=== PATIENT | male | born 1985 | race Caucasian/White ===

== ENCOUNTER 2018-07-05 11:42 | Outpatient (REF) | payer SELFPAY | END 2018-07-05 11:43 | LOC: OM 11:42 | PROVIDERS: PCP Physician Assistant Medical; Visit Provider Nurse Practitioner Family | DX: Z02.83 Encounter for blood-alcohol and blood-drug test (principal) ==

== ENCOUNTER 2018-07-05 11:43 | Outpatient (REF) | payer SELFPAY | END 2018-07-05 11:44 | LOC: OM 11:43 | PROVIDERS: PCP Physician Assistant Medical; Visit Provider Nurse Practitioner Family | DX: Z02.1 Encounter for pre-employment examination (principal) ==

== ENCOUNTER 2018-08-24 11:47 | Outpatient (REF) | payer MEDICAID, SELFPAY ==
[2018-08-24 20:59] LABS: Anion Gap 5.1 mmol/L (3-11); BUN 9 mg/dL (7-18); CO2 29.9 mmol/L (21.0-32.0); CREATININE 0.91 mg/dL (0.70-1.30); Calcium 8.5 mg/dL (8.5-10.1); Chloride 101 mmol/L (98-107); Cholesterol 180 mg/dL (50-200); Glucose 77 mg/dL (70-100); HDL Cholesterol 50 mg/dL (40-60); LDL CHOLESTEROL 113 mg/dL (<100); Potassium 5.6 mmol/L (3.5-5.1); Sodium 136 mmol/L (136-145); Triglyceride 129 mg/dL (30-150)
== END 2018-08-24 12:07 ==
LOC: NCHCN 11:47
PROVIDERS: PCP Physician Assistant Medical; Visit Provider Specialist/Technologist Athletic Trainer
DX: Z00.00 Encounter for general adult medical examination without abnormal findings (principal); Z13.228 Encounter for screening for other metabolic disorders; Z13.220 Encounter for screening for lipoid disorders
CPT/HCPCS: 80048; 80061; 83721

== ENCOUNTER 2019-05-31 07:20 | Emergency (ER) | payer MEDICAID, SELFPAY ==
[2019-05-31 07:29] VITALS: BP 153/101; PULSE 62; RESP 20; TEMP 36.8; O2SAT 100
--- NOTE | 2019-05-31 07:30 | W.ED.GENAD ---
Discharge Plan Disposition Patient Disposition: HOME Condition: Improving Discharge Details Chief Complaint: FlankPain Clinical Impression: Abdominal pain, left lateral Primary Care Provider: Yury Allen ED Provider: Emil Gilliam Home Meds and New Rx's Prescriptions: New hydromorphone 2 mg tablet 2 mg PO Q4H PRN (Reason: pain) Qty: 20 RF: 0 No Action No Known Home Meds RF: 0 Discharge Instructions Additional Instructions: I discussed your case with Dr. Bonner of [facility] urology. He stated that they would make a follow-up appointment with you in clinic. The clinic number is [phone]. Return if you develop a fever, grossly bloody urine, increasing pain, or any other acute concerns. May use Tylenol and/or ibuprofen as needed for pain. May use the provided hydromorphone as needed for severe pain. No alcohol, driving, working with this medication. Stand Alone Forms: Work Release Discharge Data Discharge Date/Time-TO BE ENTERED AT DEPARTURE: 05/31/19 12:00 Medical Decision Making <Donnie Richard DO - Last Filed: 05/31/19 20:47> This is a 34-year-old male with a past medical history of kidney stones who presents today for evaluation of left-sided flank pain that radiates to his groin that began at 3 AM. He has associated nausea, exam demonstrates reproducible left-sided pain, left CVA tenderness. Testicular exam is normal, no clinical evidence of torsion. Signs and symptoms are concerning for diverticulitis and urolithiasis. We will treat his pain, rehydrate, and a CT scan for further evaluation. The case was be signed out to my colleague Dr. Emil Gilliam for final management disposition pending labs and CT imaging. <Emil Gilliam MD - Last Filed: 05/31/19 11:55> Received signout from Dr. Richard. Please see his note regarding details of initial presentation, exam, plan of care. The patient's abdominal CT revealed left renal mass with acute hydronephrosis. He is a smoker and there was note of a small pulmonary nodule as well. Referred for CT of the chest which reveals multiple small bilateral pulmonary nodules. Labs reveal a white count of 9, hematocrit 44, platelets 231, sodium 140, potassium 4.1, nightly 9, creatinine 0.9, glucose 126, normal LFTs, urinalysis pH 6.5, specific gravity 1.01, negative for blood. Case discussed with on-call urology at [facility], Dr. Bonner. They will make arrangements to see the patient in oncologic urology clinic. He understands homecare as well as follow-up and return precautions. He will require narcotic analgesia for home which I have consented him for. He is stable to discharge at this time. ABDOMEN AND PELVIC CT: CT examination of the abdomen and pelvis was performed with a bolus infusion of 100 cc's of Omnipaque 350. Images obtained through the lung bases are unremarkable except for a 5 mm. in diameter, lingular intrapulmonary nodule. This is well circumscribed. No pleural effusion is seen. Liver and spleen appear normal. Pancreas appears intact. Gallbladder and bile ducts are unremarkable. No significant abdominal wall hernia is seen. There is diffuse edema of subcutaneous and intra-abdominal fat. There is a small quantity of free fluid in the pelvis. There is a 7.5 cm. in diameter, mildly enhancing, mildly heterogeneous left renal mass which appears to arise from the medial cortex, alternatively this could arise from the collecting system. The findings are highly suggestive of neoplastic disease. Alternative causes would include large thrombus but this is unlikely due to the suspected enhancement. There is moderate left hydronephrosis. Right kidney appears normal. No urinary tract calcification is seen. No ureteral calcification. Adrenals appear normal bilaterally. No gross retroperitoneal or mesenteric adenopathy. Abdominal aorta is of normal diameter and no major vascular abnormality is seen. No gross left renal vein invasion. Urinary bladder is mildly distended but otherwise unremarkable. Appendix is normal. No evidence of diverticulitis or bowel obstruction. CONCLUSION: 1. 7-8 cm. in diameter left renal mass, suspect renal cell carcinoma but other etiologies are possible. 2. 5 mm. in diameter lingular intrapulmonary nodule, possibility of metastatic disease not excluded, chest CT suggested for further evaluation. 3. Mild diffuse edema of subcutaneous and intra-abdominal fat and small free pelvic fluid. CHEST CT: CT examination of the chest was performed following the contrast enhanced abdominal and pelvic CT. Left renal mass noted on abdominal and pelvic CT is seen to obstruct the proximal left ureter with moderate resultant hydronephrosis and pooling of excreted contrast material in the collecting system. There are multiple pulmonary nodules seen bilaterally, the largest in the right middle lobe measuring 7 mm. in diameter with additional nodules in the right lower lobe measuring 3 mm. and 5 mm. in diameter respectively. 2 mm. nodule left upper lobe. 5 mm. nodule lingula. 3 and 4 mm. in diameter left lower lobe nodules. No focal consolidation is seen. No gross mediastinal or hilar adenopathy. No pleural effusion is seen. Tracheobronchial tree appears intact. CONCLUSION: Multiple bilateral intrapulmonary nodules, the largest measuring about 7 mm. in diameter in the right middle lobe. Given the finding of a large left renal mass suspicious for renal cell carcinoma, the findings are suspicious for intrathoracic metastatic disease. Lab Data Lab results reviewed: Yes I reviewed the patient's lab results. Laboratory Results - last 24 hr 05/31/19 05/31/19 07:40 07:40 WBC 9.29 RBC 5.14 Hgb 15.3 Hct 44.4 MCV 86.4 MCH 29.8 MCHC 34.5 RDW 13.1 Plt Count 231 MPV 9.6 Immature Gran % 0.4 Neutrophils % 75.9 Lymphocytes % 15.9 Monocytes % 7.2 Eosinophils % 0.4 Basophils % 0.2 Absolute Neutrophils 7.04 H Absolute Lymphocytes 1.48 Absolute Monocytes 0.67 Absolute Eosinophils 0.04 Absolute Basophils 0.02 Sodium 140 Potassium 4.1 Chloride 104 Carbon Dioxide 26.9 Anion Gap 9.1 BUN 20 H Creatinine 0.94 Estimated GFR/1.73 m2 >= 60.00 Glucose 126 H Calcium 8.9 Total Bilirubin 0.1 L AST 11 L ALT 20 Alkaline Phosphatase 76 Total Protein 6.9 Albumin 3.5 Lipase 94 HPI <Donnie Richard DO - Last Filed: 05/31/19 20:47> General Date/Time Provider Initiated Documentation: 05/31/19 07:22. HPI Narrative: This is a pleasant 34-year-old male with a past medical history of kidney stones, who presents today with left-sided abdominal pain and flank pain that started at 3 AM. It does radiate to his groin, however he states that the pain is atypical from his normal kidney stones. He describes it as an achy-like sensation with associated nausea and one episode of vomiting. He denies any right-sided abdominal pain, chest pain, chest heaviness, chest tightness shortness of breath. He denies any numbness tingling or weakness. He denies any hematuria increased urinary frequency or dysuria area. He has not taken for anything for the pain at this time. Patient has no previous abdominal surgeries. He denies any IV or illicit drug use or pertinent family history. No other modifying factors at this time. Related Data Home Medications Medication Instructions Recorded Confirmed Unknown [No Known Home Meds] 05/31/19 05/31/19 hydromorphone 2 mg PO Q4H PRN #20 tab 05/31/19 Previous Rx's Medication Instructions Recorded hydromorphone 2 mg PO Q4H PRN #20 tab 05/31/19 Allergies Allergy/AdvReac Type Severity Reaction Status Date / Time No Known Allergies Allergy Unverified 05/31/19 07:31 Review of Systems <Donnie Richard DO - Last Filed: 05/31/19 20:47> Review of Systems All systems reviewed & are unremarkable except as noted in HPI and below PFSH <Donnie Richard DO - Last Filed: 05/31/19 20:47> Medical History Kidney stones (Chronic) Social History Smoking/Tobacco Use Status: Current every day Drug use: Daily Substance use type: marijuana Do you feel safe at home: Yes Do you feel safe in your relationship?: Yes Exam <Donnie Richard DO - Last Filed: 05/31/19 20:47> Narrative Exam Narrative: 1.Const: Well-nourished, Well-developed, appearing stated age 2.Eyes: PERRL, no conjunctival injection, and symmetrical lids. 3.ENT: Atraumatic external nose and ears. Moist MM. Neck: Symmetric, trachea midline, No thyromegaly. 4.CVS: +S1/S2, No murmurs or gallops. Peripheral pulses 2+ and equal in all extremities. Brisk capillary refill in all extremities. 5.RESP: Unlabored respiratory effort. Clear to auscultation bilaterally. No wheezes rales or rhonchi 6.GI: Soft, Nondistended, No hepatosplenomegaly. No guarding or rebound. Mild left-sided abdominal tenderness, mild left CVA tenderness on palpation and percussion. No guarding or rebound. Negative obturator and psoas sign. No pain at McBurney's point, negative Guzman sign. Scrotal and genital exam demonstrates normal male genitalia with bilaterally descended testicles, normal cremasteric reflex bilaterally, no testicular tenderness. 7.MSK: Normocephalic/Atraumatic, Extremities w/o deformity or ttp No cyanosis or clubbing, Normal movement of all extremities 8.Skin: Warm, Dry. No rashes or lesions. 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 Sensation grossly intact, no focal neurologic deficits. 10.Psych: (AAO) x3. Appropriate mood and affect Sign Out <Donnie Richard DO - Last Filed: 05/31/19 20:47> Sign Out Data: Sign Out Comment: Left flank pain, radiates to groin, rule out diverticulitis and urolithiasis. Pending labs and imaging. Last updated by Donnie Richard DO at 05/31/19 07:34
--- NOTE | 2019-05-31 07:33 | ED.GENADUL_ITS ---
Discharge Plan Disposition Patient Disposition: HOME Condition: Improving Discharge Details Chief Complaint: FlankPain Clinical Impression: Abdominal pain, left lateral Primary Care Provider: Yury Allen ED Provider: Emil Gilliam Home Meds and New Rx's Prescriptions: New hydromorphone 2 mg tablet 2 mg PO Q4H PRN (Reason: pain) Qty: 20 RF: 0 No Action No Known Home Meds RF: 0 Discharge Instructions Additional Instructions: I discussed your case with Dr. Bonner of [facility] urology. He stated that they would make a follow-up appointment with you in clinic. The clinic number is [phone]. Return if you develop a fever, grossly bloody urine, increasing pain, or any other acute concerns. May use Tylenol and/or ibuprofen as needed for pain. May use the provided hydromorphone as needed for severe pain. No alcohol, driving, working with this medication. Stand Alone Forms: Work Release Discharge Data Discharge Date/Time-TO BE ENTERED AT DEPARTURE: 05/31/19 12:00 Medical Decision Making <Donnie Richard DO - Last Filed: 05/31/19 20:47> This is a 34-year-old male with a past medical history of kidney stones who presents today for evaluation of left-sided flank pain that radiates to his groin that began at 3 AM. He has associated nausea, exam demonstrates reproducible left-sided pain, left CVA tenderness. Testicular exam is normal, no clinical evidence of torsion. Signs and symptoms are concerning for diverticulitis and urolithiasis. We will treat his pain, rehydrate, and a CT scan for further evaluation. The case was be signed out to my colleague Dr. Emil Gilliam for final management disposition pending labs and CT imaging. <Emil Gilliam MD - Last Filed: 05/31/19 11:55> Received signout from Dr. Richard. Please see his note regarding details of initial presentation, exam, plan of care. The patient's abdominal CT revealed left renal mass with acute hydronephrosis. He is a smoker and there was note of a small pulmonary nodule as well. Referred for CT of the chest which reveals multiple small bilateral pulmonary nodules. Labs reveal a white count of 9, hematocrit 44, platelets 231, sodium 140, potassium 4.1, nightly 9, creatinine 0.9, glucose 126, normal LFTs, urinalysis pH 6.5, specific gravity 1.01, negative for blood. Case discussed with on-call urology at [facility] [place], Dr. Bonner. They will make arran gements to see the patient in oncologic urology clinic. He understands homecare as well as follow-up and return precautions. He will require narcotic analgesia for home which I have consented him for. He is stable to discharge at this time. ABDOMEN AND PELVIC CT: CT examination of the abdomen and pelvis was performed with a bolus infusion of 100 cc's of Omnipaque 350. Images obtained through the lung bases are unremarkable except for a 5 mm. in diameter, lingular intrapulmonary nodule. This is well circumscribed. No pleural effusion is seen. Liver and spleen appear normal. Pancreas appears intact. Gallbladder and bile ducts are unremarkable. No significant abdominal wall hernia is seen. There is diffuse edema of subcutaneous and intra-abdominal fat. There is a small quantity of free fluid in the pelvis. There is a 7.5 cm. in diameter, mildly enhancing, mildly heterogeneous left renal mass which appears to arise from the medial cortex, alternatively this could arise from the collecting system. The findings are highly suggestive of neoplastic disease. Alternative causes would include large thrombus but this is unlikely due to the suspected enhancement. There is moderate left hydronephrosis. Right kidney appears normal. No urinary tract calcification is seen. No ureteral calcification. Adrenals appear normal bilaterally. No gross retroperitoneal or mesenteric adenopathy. Abdominal aorta is of normal diameter and no major vascular abnormality is seen. No gross left renal vein invasion. Urinary bladder is mildly distended but otherwise unremarkable. Appendix is normal. No evidence of diverticulitis or bowel obstruction. CONCLUSION: 1. 7-8 cm. in diameter left renal mass, suspect renal cell carcinoma but other etiologies are possible. 2. 5 mm. in diameter lingular intrapulmonary nodule, possibility of metastatic disease not excluded, chest CT suggested for further evaluation. 3. Mild diffuse edema of subcutaneous and intra- abdominal fat and small free pelvic fluid. CHEST CT: CT examination of the chest was performed following the contrast enhanced abdominal and pelvic CT. Left renal mass noted on abdominal and pelvic CT is seen to obstruct the proximal left ureter with moderate resultant hydronephrosis and pooling of excreted contrast material in the collecting system. There are multiple pulmonary nodules seen bilaterally, the largest in the right middle lobe measuring 7 mm. in diameter with additional nodules in the right lower lobe measuring 3 mm. and 5 mm. in diameter respectively. 2 mm. nodule left upper lobe. 5 mm. nodule lingula. 3 and 4 mm. in diameter left lower lobe nodules. No focal consolidation is seen. No gross mediastinal or hilar adenopathy. No pleural effusion is seen. Tracheobronchial tree appears intact. CONCLUSION: Multiple bilateral intrapulmonary nodules, the largest measuring about 7 mm. in diameter in the right middle lobe. Given the finding of a large left renal mass suspicious for renal cell carcinoma, the findings are suspicious for intrathoracic metastatic disease. Lab Data Lab results reviewed: Yes I reviewed the patient's lab results. Laboratory Results - last 24 hr 05/31/19 05/31/19 07:40 07:40 WBC 9.29 RBC 5.14 Hgb 15.3 Hct 44.4 MCV 86.4 MCH 29.8 MCHC 34.5 RDW 13.1 Plt Count 231 MPV 9.6 Immature Gran % 0.4 Neutrophils % 75.9 Lymphocytes % 15.9 Monocytes % 7.2 Eosinophils % 0.4 Basophils % 0.2 Absolute Neutrophils 7.04 H Absolute Lymphocytes 1.48 Absolute Monocytes 0.67 Absolute Eosinophils 0.04 Absolute Basophils 0.02 Sodium 140 Potassium 4.1 Chloride 104 Carbon Dioxide 26.9 Anion Gap 9.1 BUN 20 H Creatinine 0.94 Estimated GFR/1.73 m2 >= 60.00 Glucose 126 H Calcium 8.9 Total Bilirubin 0.1 L AST 11 L ALT 20 Alkaline Phosphatase 76 Total Protein 6.9 Albumin 3.5 Lipase 94 HPI <Donnie Richard DO - Last Filed: 05/31/19 20:47> General Date/Time Provider Initiated Documentation: 05/31/19 07:22 . HPI Narrative: This is a pleasant 34-year-old male with a past medical history of kidney stones, who presents today with left-sided abdominal pain and flank pain that started at 3 AM. It does radiate to his groin, however he states that the pain is atypical from his normal kidney stones. He describes it as an achy-like sensation with associated nausea and one episode of vomiting. He denies any right-sided abdominal pain, chest pain, chest heaviness, chest tightness shortness of breath. He denies any numbness tingling or weakness. He denies any hematuria increased urinary frequency or dysuria area. He has not taken for anything for the pain at this time. Patient has no previous abdominal surgeries. He denies any IV or illicit drug use or pertinent family history. No other modifying factors at this time. Related Data Home Medications Medication Instructions Recorded Confirmed Unknown [No Known Home Meds] 05/31/19 05/31/19 hydromorphone 2 mg PO Q4H PRN #20 tab 05/31/19 Previous Rx's Medication Instructions Recorded hydromorphone 2 mg PO Q4H PRN #20 tab 05/31/19 Allergies Allergy/AdvReac Type Severity Reaction Status Date / Time No Known Allergies Allergy Unverified 05/31/19 07:31 Review of Systems <Donnie Richard DO - Last Filed: 05/31/19 20:47> Review of Systems All systems reviewed & are unremarkable except as noted in HPI and below PFSH <Donnie Richard DO - Last Filed: 05/31/19 20:47> Medical History Kidney stones (Chronic) Social History Smoking/Tobacco Use Status: Current every day Drug use: Daily Substance use type: marijuana Do you feel safe at home: Yes Do you feel safe in your relationship?: Yes Exam <Donnie Richard DO - Last Filed: 05/31/19 20:47> Narrative Exam Narrative: 1.Const: Well-nourished, Well-developed, appearing stated age 2.Eyes: PERRL, no conjunctival injection, and symmetrical lids. 3.ENT: Atraumatic external nose and ears. Moist MM. Neck: Symmetric, trachea midline, No thyromegaly. 4.CVS: +S1/S2, No murmurs or gallops. Peripheral pulses 2+ and equal in all extremities. Brisk capillary refill in all extremities. 5.RESP: Unlabored respiratory effort. Clear to auscultation bilaterally. No wheezes rales or rhonchi 6.GI: Soft, Nondistended, No hepatosplenomegaly. No guarding or rebound. Mild left-sided abdominal tenderness, mild left CVA tenderness on palpation and percussion. No guarding or rebound. Negative obturator and psoas sign. No pain at McBurney's point, negative Guzman sign. Scrotal and genital exam demonstrates normal male genitalia with bilaterally descended testicles, normal cremasteric reflex bilaterally, no testicular tenderness. 7.MSK: Normocephalic/Atraumatic, Extremities w/o deformity or ttp No cyanosis or clubbing, Normal movement of all extremities 8.Skin: Warm, Dry. No rashes or lesions. 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 Sensation grossly intact, no focal neurologic deficits. 10.Psych: (AAO) x3. Appropriate mood and affect Sign Out <Donnie Richard DO - Last Filed: 05/31/19 20:47> Sign Out Data: Sign Out Comment: Left flank pain, radiates to groin, rule out diverticulitis and urolithiasis. Pending labs and imaging. Last updated by Donnie Richard DO at 05/31/19 07:34
[2019-05-31 07:46] LABS: Abs Immature Grans 0.04 k/cumm (0.0-0.09); Absolute Basophil Count 0.02 k/cumm (0.0-0.2); Absolute Eosinophil Count 0.04 k/cumm (0.0-0.7); Absolute Lymphocyte Count 1.48 k/cumm (1.2-3.4); Absolute Monocyte Count 0.67 k/cumm (0.11-0.7); Absolute Neutrophil Count 7.04 k/cumm (1.2-6.7); Basophils % 0.2; Eosinophils % 0.4; HCT 44.4 % (40.0-50.0); HGB 15.3 g/dL (13.5-17.5); Immature Grans % 0.4; Lymphocytes % 15.9; Mean Corp. HGB Concentration 34.5 g/dL (32.0-36.0); Mean Corpuscular Hemoglobin 29.8 pg (27.0-33.0); Mean Corpuscular Volume 86.4 fL (80-95); Mean Platelet Volume 9.6 fL (8.0-11.0); Monocytes % 7.2; Neutrophils % 75.9; Platelet Count 231 x1000/uL (130-400); RBC 5.14 m/cumm (4.50-6.00); RBC Distribution Width 13.1 % (11.8-14.1); White Blood Cell Count 9.29 k/cumm (4.4-10.8)
[2019-05-31] MEDS: Ketorolac 30 MG/ML VIAL IVP (07:46)
[2019-05-31] MEDS: Normal Saline 1,000 ML 1000 ML IV (07:46)
[2019-05-31] MEDS: MORPHine 10 MG/ML VIAL 4 MG IVP (07:46)
[2019-05-31] MEDS: Omnipaque 350 MG/ML 100 ML BTL IJ (07:56)
[2019-05-31 08:08] LABS: ALT 20 U/L (12-78); AST 11 U/L (15-37); Albumin 3.5 g/dL (3.4-5.0); Alkaline Phosphatase 76 U/L (46-116); Anion Gap 9.1 mmol/L (3-11); BUN 20 mg/dL (7-18); Bilirubin, Total 0.1 mg/dL (0.2-1.0); CO2 26.9 mmol/L (21.0-32.0); CREATININE 0.94 mg/dL (0.70-1.30); Calcium 8.9 mg/dL (8.5-10.1); Chloride 104 mmol/L (98-107); Glucose 126 mg/dL (70-100); Lipase 94 U/L (73-393); Potassium 4.1 mmol/L (3.5-5.1); Sodium 140 mmol/L (136-145); Total Protein 6.9 g/dL (6.4-8.2)
[2019-05-31] MEDS: HYDROmorphone 2 MG/ML VIAL 1 MG IVP (08:12)
--- NOTE | 2019-05-31 08:39 | DI.CT_ITS ---
SYMPTOM/DIAGNOSIS: PULMONARY NODULE, LT RENAL MASS CHEST CT: CT examination of the chest was performed following the contrast enhanced abdominal and pelvic CT. Left renal mass noted on abdominal and pelvic CT is seen to obstruct the proximal left ureter with moderate resultant hydronephrosis and pooling of excreted contrast material in the collecting system. There are multiple pulmonary nodules seen bilaterally, the largest in the right middle lobe measuring 7 mm. in diameter with additional nodules in the right lower lobe measuring 3 mm. and 5 mm. in diameter respectively. 2 mm. nodule left upper lobe. 5 mm. nodule lingula. 3 and 4 mm. in diameter left lower lobe nodules. No focal consolidation is seen. No gross mediastinal or hilar adenopathy. No pleural effusion is seen. Tracheobronchial tree appears intact. CONCLUSION: Multiple bilateral intrapulmonary nodules, the largest measuring about 7 mm. in diameter in the right middle lobe. Given the finding of a large left renal mass suspicious for renal cell carcinoma, the findings are suspicious for intrathoracic metastatic disease.
[2019-05-31] MEDS: Ondansetron 4 MG/2 ML VIAL (08:40)
[2019-05-31 08:43] LABS: Bilirubin Negative (Negative); Blood Negative (Negative); Clarity Clear (Clear); Glucose Negative (Negative); Ketones Negative (Negative); Leukocyte Esterase Negative (Negative); Nitrite Negative (Negative); Urobilinogen 0.2 EU/dL (Up TO 0.2); pH 6.5 (5-8)
[2019-05-31] MEDS: HYDROmorphone 2 MG/ML VIAL ×2 (10:05→11:34)
[2019-05-31 11:56] VITALS: BP 153/101; PULSE 62; RESP 20; TEMP 36.8; O2SAT 100
== END 2019-05-31 12:00 | disposition home or self-care (01) ==
PROVIDERS: Student in an Organized Health Care Education/Training Program; Emergency Provider Emergency Medicine; PCP Physician Assistant Medical
DX: N28.89 Other specified disorders of kidney and ureter (principal); N13.39 Other hydronephrosis; R91.8 Other nonspecific abnormal finding of lung field; F17.210 Nicotine dependence, cigarettes, uncomplicated; Z87.442 Personal history of urinary calculi
CPT/HCPCS: 36415; 71250; 80053; 83690; 96361; 96374; 96375; 99285; 74177; 81003; 85025; 99284; J1885; J2270; J2405; J3490

== ENCOUNTER 2019-06-01 20:44 | Emergency (ER) | payer MEDICAID, SELFPAY ==
--- NOTE | 2019-06-01 20:47 | ED.GENADUL_ITS ---
Discharge Plan Discharge Details ED Provider: Emile Bonner Meds and New Rx's Prescriptions: No Action hydromorphone 2 mg tablet 2 mg PO Q4H PRN (Reason: pain) Qty: 20 RF: 0 HPI General Mode of arrival: EMS . Date/Time Provider Initiated Documentation: 06/01/19 20:45 . Limitations to Documentation: no limitations . Information obtained by: patient, EMS and old records reviewed . Related Data Home Medications Medication Instructions Recorded Confirmed hydromorphone 2 mg PO Q4H PRN #20 tab 05/31/19 Previous Rx's Medication Instructions Recorded hydromorphone 2 mg PO Q4H PRN #20 tab 05/31/19 Allergies Allergy/AdvReac Type Severity Reaction Status Date / Time No Known Allergies Allergy Unverified 05/31/19 07:31 General SHOBHA: 3 PFSH Medical History Kidney stones (Chronic) Social History Smoking/Tobacco Use Status: Current every day Drug use: Daily Substance use type: marijuana Do you feel safe at home: Yes Do you feel safe in your relationship?: Yes
--- NOTE | 2019-06-01 20:47 | NUR.NOTE ---
Nursing Note: approximately 1 hr ago PT was having a BM on the toilet then he woke up on the floor. PTs called EMS
[2019-06-01 20:59] VITALS: BP 157/88; PULSE 92; RESP 20; TEMP 39.7; O2SAT 95
--- NOTE | 2019-06-01 21:10 | W.ED.GENAD ---
Discharge Plan Disposition Patient Disposition: [facility] Condition: Stable Discharge Details Chief Complaint: Urinary Clinical Impression: Hydronephrosis of left kidney, Left renal mass, Fever Primary Care Provider: Yury Allen ED Provider: Emile Bonner Vale Meds and New Rx's Prescriptions: No Action hydromorphone [Dilaudid] 2 mg Tablet 2 mg PO RF: 0 Medical Decision Making Patient presenting with recurrent and worsening left flank pain now associated with fever and chills. He is febrile to 103.5. He is diaphoretic. He looks uncomfortable but not toxic. His abdomen is benign. His lungs have few scattered wheezes and rhonchi likely related to his smoking. His CT scan of his chest yesterday was negative for pneumonia or infiltrate. Suspect given the hydronephrosis and renal mass that he likely has urinary infection and is in need of decompression. 2 IVs are established and fluids started. Repeat laboratory studies ordered including blood cultures. Morphine and Cipro ordered. Patient's laboratory studies currently are okay. White count is 8.9. Renal function remains normal. Chemistries remain normal. Lactic acid is normal. Urine is negative for infection. Still concerned for obstruction with proximal infection requiring decompression urgently. He remains hemodynamically stable but uncomfortable even with morphine. Dilaudid is ordered. Call placed to [facility] to speak to urology for potential transfer. Case discussed with Dr. Stone, urology at [facility]. Patient accepted in transfer to the emergency department for urgent urological evaluation. He has remained hemodynamically stable here. I will transfer with fluids going in the care of medic in case he becomes septic with hypotension. Pain is better with Dilaudid. Medical Records Medical records reviewed: Yes I reviewed the patient's medical records. Lab Data Lab results reviewed: Yes I reviewed the patient's lab results. HPI General Mode of arrival: ambulatory. Date/Time Provider Initiated Documentation: 06/01/19 20:45. Limitations to Documentation: no limitations. Information obtained by: patient, RN notes reviewed and old records reviewed. HPI Narrative: Patient returns to ED with recurrent left back and flank pain. He also has developed fever and rigors this afternoon. He has had 3 episodes of rigors with associated sweats and shortness of breath. 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 He was also found to have multiple pulmonary nodules. His pain was under control and he was discharged home to follow-up with [facility] urology whom my colleague spoke to. Patient did not hear from [facility] today. He returned here as instructed this evening because of the high fever and rigors. Related Data Home Medications Medication Instructions Recorded Confirmed hydromorphone [Dilaudid] 2 mg PO 06/01/19 Allergies Allergy/AdvReac Type Severity Reaction Status Date / Time acetaminophen [From Tylenol] AdvReac Mild Nausea Unverified 06/01/19 22:32 General Stated Complaint: Dizzy/Sync SHOBHA: 3 Review of Systems Review of Systems 09/04 Review of Systems completed and is negative except as stated above in HPI (Systems reviewed: Const, Eyes, ENT, Resp, CV, GI, , MSK, Skin, Neuro) [facility] Medical History Kidney stones (Chronic) Social History Smoking/Tobacco Use Status: Current every day Drug use: Daily Substance use type: marijuana Do you feel safe at home: Yes Do you feel safe in your relationship?: Yes Exam Narrative Exam Narrative: Vitals: Afebrile. Not tachycardic. Hypertensive presumably due to pain. Const: WDWN male in NAD but does appear uncomfortable. HEENT: NC/AT. Normal facial exam. Eyes: Normal conjunctiva and sclera. Neck: Supple. Trachea midline. Lungs: Normal respiratory effort. Lungs with a few scattered wheeze/rhonchi. Cor: RRR without murmur/gallop. Good radial pulses. GI: Soft. NT/ND. No guarding or rebound. Back: Left CVAT. Neuro: A+O x 3. CN grossly in tact. Good strength and no focal deficit. Ext: No C/C/E. No deformity or tenderness. Skin: Warm, diaphoretic; no rash. Course Vital Signs Temperature 103.5 F H 06/01/19 20:59 Pulse 92 H 06/01/19 20:59 Respiratory Rate 20 06/01/19 20:59 Blood Pressure 157/88 H 06/01/19 20:59 Pulse Oximetry 95 06/01/19 20:59 Temperature 103.5 F H 06/01/19 20:59 Temperature Source Temporal Artery Scan 06/01/19 20:59 Pulse 92 H 06/01/19 20:59 Respiratory Rate 20 06/01/19 20:59 Respiratory Effort Non-Labored 06/01/19 20:59 Blood Pressure 157/88 H 06/01/19 20:59 Blood Pressure Position Supine 06/01/19 20:59 Pulse Oximetry 95 06/01/19 20:59 Oxygen Delivery Method Room Air 06/01/19 20:59 Oxygen Flow Rate 0 06/01/19 20:59 Pain Level 9 06/01/19 21:04
[2019-06-01] MEDS: CIPROFLOXACIN 400 MG/200 ML BAG 200 MG IVPB (22:07)
[2019-06-01] MEDS: Lactated Ringers 2,000 ML 1000 ML IV (22:07)
[2019-06-01 22:24] LABS: Lactate-non-spesis 1.2 mmol/l (0.6-1.4)
[2019-06-01 22:30] VITALS: BP 150/87; PULSE 88; RESP 20; TEMP 38.5; O2SAT 95
[2019-06-01 22:30] LABS: Abs Immature Grans 0.02 k/cumm (0.0-0.09); Absolute Basophil Count 0.01 k/cumm (0.0-0.2); Absolute Eosinophil Count 0.02 k/cumm (0.0-0.7); Absolute Lymphocyte Count 0.29 k/cumm (1.2-3.4); Absolute Monocyte Count 0.16 k/cumm (0.11-0.7); Basophils % 0.1; Eosinophils % 0.2; HGB 13.8 g/dL (13.5-17.5); Immature Grans % 0.2; Lymphocytes % 3.3; Mean Corp. HGB Concentration 34.5 g/dL (32.0-36.0); Mean Corpuscular Hemoglobin 29.5 pg (27.0-33.0); Mean Corpuscular Volume 85.5 fL (80-95); Mean Platelet Volume 10.2 fL (8.0-11.0); Monocytes % 1.8; Neutrophils % 94.4; Platelet Count 160 x1000/uL (130-400); RBC 4.68 m/cumm (4.50-6.00); RBC Distribution Width 13.1 % (11.8-14.1)
[2019-06-01 22:43] LABS: ALT 31 U/L (12-78); AST 38 U/L (15-37); Albumin 3.3 g/dL (3.4-5.0); Alkaline Phosphatase 82 U/L (46-116); Anion Gap 10.5 mmol/L (3-11); BUN 15 mg/dL (7-18); Bilirubin, Total 0.6 mg/dL (0.2-1.0); CO2 25.5 mmol/L (21.0-32.0); Calcium 8.6 mg/dL (8.5-10.1); Chloride 100 mmol/L (98-107); Glucose 89 mg/dL (70-100); Magnesium 1.8 mg/dL (1.8-2.4); Potassium 3.6 mmol/L (3.5-5.1); Sodium 136 mmol/L (136-145); Total Protein 6.7 g/dL (6.4-8.2)
[2019-06-01 22:53] LABS: Bilirubin Negative (Negative); Blood Trace-intact (Negative); Clarity Clear (Clear); Glucose Negative (Negative); Ketones 15 mg/dL (Negative); Leukocyte Esterase Negative (Negative); Nitrite Negative (Negative); Specific Gravity 1.015 (1.005-1.025); Urobilinogen 0.2 EU/dL (Up TO 0.2); pH 5.5 (5-8)
[2019-06-01] MEDS: Lactated Ringers 1,000 ML 150 ML IV (22:59)
[2019-06-01 23:03] LABS: Bacteria Negative HPF (Negative); C & S Indicated? No; Casts Negative LPF (Negative); Crystals Negative HPF (Negative); Epithelial Cells Negative HPF (Negative); Mucus Negative (Negative); Other Cells Negative (Negative); RBC 0-2 (0-2); WBC 0-2 HPF (0-5)
[2019-06-01 23:30] VITALS: BP 145/83; PULSE 86; RESP 20; TEMP 38.5; O2SAT 95
[2019-06-01] MEDS: HYDROmorphone 2 MG/ML VIAL 1 MG IVP (23:55)
[2019-06-02 00:18] VITALS: BP 138/80; PULSE 86; RESP 18; TEMP 38.3; O2SAT 94
[2019-06-02 03:56] VITALS: BP 138/80; PULSE 86; RESP 18; O2SAT 94
== END 2019-06-02 01:15 | disposition short-term general hospital (02) ==
PROVIDERS: Emergency Provider Emergency Medicine; PCP Physician Assistant Medical
DX: N13.39 Other hydronephrosis (principal); N39.8 Other specified disorders of urinary system
CPT/HCPCS: 36415; 80053; 87040; 96361; 96365; 96375; 99284; 81003; 81015; 83605; 83735; 85025; J0744

== ENCOUNTER 2020-10-02 13:21 | Outpatient (REF) | payer MEDICAID, SELFPAY ==
[2020-10-07 12:23] LABS: Patient Race White; SARS-CoV-2 RNA Undetected (Undetected); SARS-CoV-2 Specimen Source Nasal
== END 2020-10-02 13:41 ==
LOC: NCHCN 13:21
PROVIDERS: PCP Physician Assistant Medical; Visit Provider Physician Assistant Medical
DX: R53.81 Other malaise (principal)
CPT/HCPCS: U0003

== ENCOUNTER 2022-12-23 18:08 | Emergency (ER) | payer MEDICAID, SELFPAY ==
[2022-12-23 18:12] VITALS: PULSE 90; RESP 18; TEMP 36.7; O2SAT 95
[2022-12-23 18:16] VITALS: BP 188/83
--- NOTE | 2022-12-23 18:45 | DI.RAD_ITS ---
Exam(s) XR FOOT LT COMPLETE EXAM: XR FOOT LT COMPLETE CLINICAL HISTORY: Abscess, R/O Gas, Foreign body. TECHNIQUE: 2D digital imaging was performed. Three views. COMPARISON: No exams were available for comparison FINDINGS: BONES: No acute fracture is present. No bony destructive lesion is seen. JOINTS: No dislocation present. SOFT TISSUE: Diffuse edema. Focal swelling at the dorsum of the foot over the metatarsal region. No foreign body. No gas collection. IMPRESSION: Prominent soft tissue swelling over the metatarsal region. DATA REPOSITORY: RADIATION DOSE DELIVERED:
--- NOTE | 2022-12-23 18:46 | ED.GENADUL_ITS ---
Discharge Plan Disposition Patient Disposition: Home Condition: Serious Discharge Details Clinical Impression: Cellulitis and abscess of foot Primary Care Provider: Yury Allen ED Provider: Genoveva Macdonald Home Meds and New Rx's Prescriptions: New sulfamethoxazole-trimethoprim [Bactrim DS] 800-160 mg tablet 1 tab PO BID 10 Days Qty: 20 0RF Rx Instructions: Take 1 tablet by mouth with food twice daily for 10 days cephalexin 500 mg tablet 500 mg PO BID 10 Days Qty: 20 0RF Rx Instructions: Take 1 tablet by mouth with food twice daily for 10 days Discharge Instructions Instructions: Cellulitis (ED) Additional Instructions: Please have your foot rechecked in 2 to 3 days. You may return to the ER for recheck or be seen by your PCP if you can get in. Please take the antibiotics twice daily with yogurt or probiotic as prescribed. Return sooner if the redness spreads, worsening fever chills or feeling sicker at any time. No soaking. Change the dressing once a day. Wear the postop shoe as needed for comfort. You may keep your foot elevated when at rest. Keep clean and dry. Please take Tylenol or Ibuprofen with food every 4-6 hours as needed for pain and swelling. Please consider calling the power and recovery supervisor to discuss rehab options phone number is [phone] Stand Alone Forms: Work Release Referrals: Yury Allen PA [Primary Care Provider] - 2 days Medical Decision Making 37-year-old male presents to the ER with left foot cellulitis and abscess. He reports 3 days ago he injected heroin and since then has had increased swelling, erythema which is extending up past his ankle. He denies any fever or chills denies any knee pain. He is a smoker. He has been using for approximately 10 years. Work-up ordered including CBC, CMP lactate blood cultures x2 to rule out systemic disease. We will order a x-ray of left foot to rule out foreign body and/or gas. We will consider doing an I&D of abscess there is fluctuance noted to the dorsum of his left foot. CBC shows slight leukocytosis 12.54, with a left shift absolute neutrophils 10.22, lymphocytes 1.13 monocytes 1.09 lactate is within normal limits 1.2 sodium 134 chloride 97 alk phos is 124. Blood cultures x2 drawn. Patient is complaining of 10 out of 10 pain to his left foot. X-rays pending at this time. Clindamycin and Rocephin ordered Zofran and morphine IV. X-ray shows soft tissue swelling no subcutaneous emphysema. No foreign body. Please see procedure note. Area was cleansed with chlorhexidine and alcohol anesthetized with 1% lidocaine with epi, incision performed with an 11 blade small amount of purulent drainage expressed with mixed with blood. A second incision was placed just proximal to the first no significant fluid expressed, other than mixed purulent drainage and blood. Foot to be dressed with nonadherent dressing by staff nurse icu resource team and a postop shoe was ordered. I did recommend admission for IV antibiotics with patient which he declined at this time. I did express that he needs to have a recheck in 2 to 3 days he verbalizes understanding and is in agreement with the plan. I will send patient home with Bactrim and cephalexin. Strict return instructions given. Instructed to return if any worsening of the redness, fever chills or concerns. We will give patient information to the power and recovery supervisor. This text was generated using obiwonation system, please disregard any oddities of phrase or misspellings. Lab Data Lab results reviewed: Yes I reviewed the patient's lab results. Labs: 12/23/22 19:10 Blood Blood Culture - Pending 12/23/22 19:05 Blood Blood Culture - Pending Laboratory Tests Range/Units 12/23/22 12/23/22 12/23/22 18:47 18:47 18:47 WBC (4.4-10.8) 10^3/uL 12.54 H RBC (4.36-5.78) 10^6/uL 4.88 Hgb (13.5-17.5) g/dL 14.3 Hct (40.0-50.0) % 41.4 MCV (80-95) fL 85 MCH (27.0-33.0) pg 29.3 MCHC (32.0-36.0) % 34.5 RDW (11.8-14.1) % 12.1 Plt Count (130-400) 10^3/uL 230 MPV (8.0-11.0) fL 9.3 Immature Gran % 0.3 Neutrophils % 81.5 Lymphocytes % 9.0 Monocytes % 8.7 Eosinophils % 0.2 Basophils % 0.3 Nucleated RBC % (0.0-0.3) % 0.0 Absolute Neutrophils (1.2-6.7) 10^3/uL 10.22 H Absolute Lymphocytes (1.2-3.4) 10^3/uL 1.13 L Absolute Monocytes (0.1-0.8) 10^3/uL 1.09 H Absolute Eosinophils (0.0-0.7) 10^3/uL 0.03 Absolute Basophils (0.0-0.2) 10^3/uL 0.04 VBG Lactate (0.6-1.4) mmol/L 1.2 Sodium (136-145) mmol/L 134 L Potassium (3.5-5.1) mmol/L 3.9 Chloride (98-107) mmol/L 97 L Carbon Dioxide (21.0-32.0) mmol/L 29.5 Anion Gap (3-11) mmol/L 7.5 BUN (7-18) mg/dL 13 Creatinine (0.70-1.30) mg/dL 1.1 Est GFR (CKD-EPI 2020) (mL/min/1.73m2) 89.78 Glucose (74-106) mg/dL 101 Calcium (8.5-10.1) mg/dL 9.1 Magnesium (1.8-2.4) mg/dL 1.9 Total Bilirubin (0.2-1.0) mg/dL 0.5 AST (15-37) U/L 23 ALT (16-63) U/L 19 Alkaline Phosphatase (46-116) U/L 124 H Total Protein (6.4-8.2) g/dL 8.1 Albumin (3.4-5.0) g/dL 3.7 HPI General Mode of arrival: ambulatory . Date/Time Provider Initiated Documentation: 12/23/22 18:12 . Limitations to Documentation: no limitations . Information obtained by: patient . HPI Narrative: 37-year-old male presents to the ER with left foot cellulitis and abscess. He reports 3 days ago he injected heroin and since then has had increased swelling, erythema which is extending up past his ankle. He denies any fever or chills denies any knee pain. He is a smoker. He has been using for approximately 10 years. Related Data Home Medications Medication Instructions Recorded Confirmed cephalexin 500 mg tablet 500 mg PO BID Cellulitis 10 days 12/23/22 #20 tabs sulfamethoxazole 800 1 tab PO BID Cellulitis 10 days 12/23/22 mg-trimethoprim 160 mg tablet #20 tabs (Bactrim DS) Previous Rx's Medication Instructions Recorded cephalexin 500 mg tablet 500 mg PO BID Cellulitis 10 days 12/23/22 #20 tabs sulfamethoxazole 800 1 tab PO BID Cellulitis 10 days 12/23/22 mg-trimethoprim 160 mg tablet #20 tabs (Bactrim DS) Allergies Allergy/AdvReac Type Severity Reaction Status Date / Time acetaminophen [From Tylenol] AdvReac Mild Nausea Unverified 12/23/22 18:16 General Stated Complaint: Cellulitis SHOBHA: 3 Review of Systems All systems reviewed & are unremarkable except as noted in HPI and below Constitutional Constitutional: Denies chills and Denies fever(s) Cardiovascular Cardiovascular: Denies chest pain and Denies dyspnea Respiratory Respiratory: Denies hemoptysis and Denies dyspnea Musculoskeletal Musculoskeletal: Reports as per HPI, Reports arthralgias and Reports joint swelling Integumentary/Breasts Skin/Breast: Reports as per HPI, Reports furuncle, Reports erythema, Reports skin pain, Reports skin swelling and Reports sores PFSH All Active Problems (Updated 12/23/22 @ 21:27 by Genoveva Macdonald NP) Cellulitis and abscess of foot (Acute) Medical History Kidney stones Social History Smoking/Tobacco Use Status: Current every day Tobacco Type: cigarettes Smoking risk assessment performed?: Yes Drug use: Daily Substance use type: marijuana Details: former opiate user Do you feel safe at home: Yes Do you feel safe in your relationship?: Yes Exam Narrative Exam Narrative: Constitutional: Alert and oriented x3. Appears stated age. Normal body habitus. Head: Normocephalic, no trauma. Eyes: Pupils PERRL, Red reflex noted, EOM's intact. Eyelids symmetrical without lesions, discharge, or swelling. Chest: RRR, Normal S1, S2, distal pulses intact. Resp: Lungs clear to auscultation bilaterally, no wheezes, rales, or rhonchi. Abdomen: Soft, non-distended, Normoactive bowel sounds all 4 quads. Musculoskeletal: See diagram below 5/5 strength to all four extremities. Skin: Left foot erythemic, swollen, there is an area of fluctuance to the dorsum of his left foot with suspected abscess, distal sensation intact. Neurologic: Cranial nerves II-XII intact. Alert and oriented x 3. Motor: No deficits noted. Sensory: Intact bilaterally all 4 extremities. Reflexes: DTR's intact bilaterally.. Hematologic/Lymphatic: No ecchymosis, no lymphadenopathy. Extrem Left lower extremity: ankle and foot Ankle/foot/toe images: 1. Large area of fluctuance measuring approximately 2 and half centimeters by 2 and half centimeters with surrounding erythema and swelling redness extends up past malleolus the lateral ankle. Foot swelling and nonpitting edema noted extending past the ankle. 2. Erythema, Swelling Course Vital Signs Vital signs: Vital Signs Temperature 36.7 C 12/23/22 18:12 Pulse 90 12/23/22 18:12 Respiratory Rate 18 12/23/22 18:12 Pulse Oximetry 95 12/23/22 18:12 Temperature 36.7 C 12/23/22 18:12 Temperature Source Oral 12/23/22 18:12 Pulse 90 12/23/22 18:12 Respiratory Rate 18 12/23/22 18:12 Respiratory Effort Non-Labored 12/23/22 18:14 Blood Pressure 188/83 H 12/23/22 18:16 Pulse Oximetry 95 12/23/22 18:12 Oxygen Delivery Method Room Air 12/23/22 18:12 Oxygen Flow Rate 0 12/23/22 18:12 Lab/Test Results Lab/Test Results: 12/23/22 18:43 Blood Blood Culture - Pending 12/23/22 18:43 Blood Blood Culture - Pending Procedures Abscess I/D Site: Foot Side (if applicable): Left Sedation/analgesia: None (Received Morphine 4 mg Prior to procedure) Local Anesthetic: Lidocaine 1% and With Epi Amount of anesthesia used (mL): 3 Technique: Incised with #11 Blade Amount of fluid expressed (mL): 5 Irrigation: No Packing used?: None Complications: Pain and Bleeding
[2022-12-23 18:55] LABS: Abs Immature Grans 0.04 10^3/uL (0.0-0.06); Absolute Basophil Count 0.04 10^3/uL (0.0-0.2); Absolute Lymphocyte Count 1.13 10^3/uL (1.2-3.4); Absolute Monocyte Count 1.09 10^3/uL (0.1-0.8); Absolute Neutrophil Count 10.22 10^3/uL (1.2-6.7); Basophils % 0.3; Eosinophils % 0.2; HCT 41.4 % (40.0-50.0); HGB 14.3 g/dL (13.5-17.5); Immature Grans % 0.3; MCH 29.3 pg (27.0-33.0); MCHC 34.5 % (32.0-36.0); MCV 85 fL (80-95); MPV 9.3 fL (8.0-11.0); Monocytes % 8.7; Neutrophils % 81.5; Platelet Count 230 10^3/uL (130-400); RBC 4.88 10^6/uL (4.36-5.78); RDW 12.1 % (11.8-14.1); RDW-SD 37.3 fL; WBC 12.54 10^3/uL (4.4-10.8)
[2022-12-23 18:57] LABS: Lactate 1.2 mmol/L (0.6-1.4)
[2022-12-23 19:18] LABS: Absolute Eosinophil Count 0.03 10^3/uL (0.0-0.7)
[2022-12-23 19:21] LABS: ALT 19 U/L (16-63); AST 23 U/L (15-37); Albumin 3.7 g/dL (3.4-5.0); Alkaline Phosphatase 124 U/L (46-116); Anion Gap 7.5 mmol/L (3-11); BUN 13 mg/dL (7-18); Bilirubin, Total 0.5 mg/dL (0.2-1.0); CO2 29.5 mmol/L (21.0-32.0); CREATININE 1.1 mg/dL (0.70-1.30); Calcium 9.1 mg/dL (8.5-10.1); Chloride 97 mmol/L (98-107); Estimated GFR 89.78 (mL/min/1.73m2); Glucose 101 mg/dL (74-106); Magnesium 1.9 mg/dL (1.8-2.4); Potassium 3.9 mmol/L (3.5-5.1); Sodium 134 mmol/L (136-145); Total Protein 8.1 g/dL (6.4-8.2)
[2022-12-23] MEDS: Ondansetron 4 MG/2 ML VIAL IVP (19:46)
[2022-12-23] MEDS: cefTRIAXone 2 GM/50 ML BAG IVPB (19:46)
[2022-12-23] MEDS: MORPHine 4 MG/ML SYR IVP (19:46)
[2022-12-23] MEDS: CLINDAMYCIN 600 MG/50 ML BAG 100 MG IVPB (20:20)
[2022-12-23 20:29] VITALS: BP 180/106; PULSE 86; RESP 16; O2SAT 98
--- NOTE | 2022-12-23 20:53 | DI.VRAD_ITS ---
PROCEDURE INFORMATION: Exam: XR Left Foot Exam date and time: 12/23/2022 8:39 PM Age: 37 years old Clinical indication: Pain; Foot; Left; Patient HX: Abcess, R/O gas, fb TECHNIQUE: Imaging protocol: Radiologic exam of the Left foot. Views: 3 or more views. COMPARISON: No relevant prior studies available. FINDINGS: Bones/joints: No osseous destruction or production. No acute fracture or dislocation Soft tissues: Diffuse swelling over the dorsum of the foot IMPRESSION: Diffuse swelling as noted . No subcutaneous gas or radiopaque foreign body No acute fracture or dislocation. No radiographic evidence for osteomyelitis Dictated and Authenticated by: Silviano Grover MD. Ordering:AD Tomas MD
[2022-12-23] MEDS: Sulfameth/Trimeth DS TAB 1 TAB PO (21:26)
[2022-12-23] MEDS: Cephalexin 500 MG CAP PO (21:27)
[2022-12-23] MEDS: Cephalexin 500 MG CAP, 4 CAPS/BTL PO (21:27)
[2022-12-23] MEDS: Sulfameth/Trimeth DS, 2 TABS/BTL 1 TAB PO (21:28)
[2022-12-23 21:55] VITALS: BP 178/99
--- NOTE | 2022-12-23 22:00 | NUR.NOTE ---
Nursing Note: Xeroform dressing, Telfa pad and 4x4s applied to pt L ft and wrapped w/ kerlex.
== END 2022-12-23 21:49 | disposition home or self-care (01) ==
PROVIDERS: Emergency Provider Registered Nurse Emergency; PCP Physician Assistant Medical
DX: L03.116 Cellulitis of left lower limb (principal); L02.416 Cutaneous abscess of left lower limb; F11.10 Opioid abuse, uncomplicated
CPT/HCPCS: 10060; 36415; 80053; 87040; 96365; 96375; 99284; 73630; 83605; 83735; 85025; J2270; J2405

== ENCOUNTER 2022-12-27 12:21 | Emergency (ER) | payer MEDICAID, SELFPAY ==
[2022-12-27 12:38] VITALS: BP 152/95; PULSE 88; RESP 17; TEMP 36.2; O2SAT 98
--- NOTE | 2022-12-27 13:51 | ED.GENADUL_ITS ---
Discharge Plan Disposition Patient Disposition: Home Condition: Stable Discharge Details Clinical Impression: Cellulitis and abscess of foot Primary Care Provider: Yury Allen ED Provider: Nandini Craven Home Meds and New Rx's Prescriptions: New cephalexin 500 mg capsule 500 mg PO QID 10 Days Qty: 40 0RF Continued sulfamethoxazole-trimethoprim [Bactrim DS] 800-160 mg tablet 1 tab PO BID 10 Days Qty: 20 0RF Rx Instructions: Take 1 tablet by mouth with food twice daily for 10 days cephalexin 500 mg tablet 500 mg PO BID 10 Days Qty: 20 0RF Rx Instructions: Take 1 tablet by mouth with food twice daily for 10 days Discharge Instructions Instructions: Cellulitis (ED) Additional Instructions: Warm compresses, elevate your leg, follow-up with surgery at your scheduled appointment tomorrow, you need to increase your Keflex to 500 mg 4 times daily instead of twice daily and continue taking the Bactrim Apply warm compresses to both areas is much as possible I ordered an outpatient ultrasound although I suspect you are developing another abscess in the upper portion of your leg Please return immediately should you develop fever, temperature greater than 100.4, spreading redness, chills, or with any new or worsening complaints Referrals: Payal Cui DO [OSTEOPATHIC DOCTOR] - 1 day Discharge Data Discharge Date/Time-TO BE ENTERED AT DEPARTURE: 12/27/22 14:04 Medical Decision Making This 37-year-old male presents with report of abscess to left foot and area to left knee which is now painful in the presence of injection of IV drugs in affected extremity pt is afebrile and non-toxic foot abscess appears improved when compared to 01/20 pictures incision and drainage performed again today with 30cc of drainage noted blood cultures negative from prior assessment pt would likely benefit from debridement and iv abx at this point(recommended admission), prefers dc and follow-up will refer to surgery at this time for reevaluation recheck in 48 hours recommended concern for developing abscess on upper calf, low suspicion for dvt with superficial red lesion/us ordered for wednesday return precautions reviewed and pt expressed understanding will increased keflex to 500 mg qid Of note, patient fully alert, oriented, of decisional capacity Medical Records Medical records reviewed: Yes I reviewed the patient's medical records. Lab Data Lab results reviewed: Yes I reviewed the patient's lab results. HPI General Date/Time Provider Initiated Documentation: 12/27/22 12:23 . HPI Narrative: THis 37 yo male with hx of IVDA presents for pain and swelling to upper calf since yesterday. evaluated for foot abscess 3 days prior to todays assessment and taking keflex and bactrim. he states the foot lesion has improved. he did inject in the left foot prior to onset of abscess. denies fever or chills. taking antibiotics as prescribed per pt. denies chest pain or shortness of breath/hx of coagulopathy Related Data Home Medications Medication Instructions Recorded Confirmed cephalexin 500 mg tablet 500 mg PO BID Cellulitis 10 days 12/23/22 12/29/22 #20 tabs sulfamethoxazole 800 1 tab PO BID Cellulitis 10 days 12/23/22 12/29/22 mg-trimethoprim 160 mg tablet #20 tabs (Bactrim DS) cephalexin 500 mg capsule 500 mg PO QID 10 days #40 caps 12/27/22 12/29/22 Previous Rx's Medication Instructions Recorded cephalexin 500 mg tablet 500 mg PO BID Cellulitis 10 days 12/23/22 #20 tabs sulfamethoxazole 800 1 tab PO BID Cellulitis 10 days 12/23/22 mg-trimethoprim 160 mg tablet #20 tabs (Bactrim DS) cephalexin 500 mg capsule 500 mg PO QID 10 days #40 caps 12/27/22 Allergies Allergy/AdvReac Type Severity Reaction Status Date / Time acetaminophen [From Tylenol] AdvReac Mild Nausea Unverified 12/29/22 13:35 General Stated Complaint: Vascular SHOBHA: 3 PFSH All Active Problems (Updated 12/29/22 @ 22:48 by Payal Cui DO) History of marijuana use (Acute) Smoker unmotivated to quit (Acute) IV drug abuse (Acute) Cellulitis and abscess of foot (Acute) Medical History (Updated 12/29/22 @ 22:48 by Payal Cui DO) Alcohol abuse, in remission Kidney malignancy Kidney stones S/p nephrectomy Social History (Updated 12/29/22 @ 14:39 by Payal Cui DO) Smoking/Tobacco Use Status: Current every day Tobacco Type: cigarettes Smoking risk assessment performed?: Yes Alcohol Intake: former Drug use: Daily Substance use type: marijuana, heroin, opiates and IV drugs Details: former alcohol use disorder. stop drinking alcohol for a year per pt Current gender identity: male Do you feel safe at home: Yes Do you feel safe in your relationship?: Yes Exam Narrative Exam Narrative: Alert, oriented, cooperative 37-year-old gentleman that does not appear to be under the influence of any illicit substances at time of my assessment has left foot abscess approximately 3 inch x 3 inch region on left foot that is fluctuant with erythema surrounding, no obvious central necrosis, neurovascularly intact Separate area to the proximal leg, medial knee is approximately 2 inch x 2 inch region of erythema and induration, lymphangitis surrounding approximately 3 inch region without additional extension, no crepitus, ranging left knee does not elicit tenderness No murmur, rate rhythm regular: Cardiac, lungs clear to auscultation, no tachypnea Course Vital Signs Vital signs: Vital Signs Temperature 36.2 C L 12/27/22 12:38 Pulse 88 12/27/22 12:38 Respiratory Rate 17 12/27/22 12:38 Blood Pressure 152/95 H 12/27/22 12:38 Pulse Oximetry 98 12/27/22 12:38 Temperature 36.2 C L 12/27/22 12:38 Temperature Source Axillary 12/27/22 12:38 Pulse 88 12/27/22 12:38 Respiratory Rate 17 12/27/22 12:38 Respiratory Effort 12/27/22 12:43 Blood Pressure 152/95 H 12/27/22 12:38 Blood Pressure Position Sitting 12/27/22 12:38 Pulse Oximetry 98 12/27/22 12:38 Oxygen Delivery Method Room Air 12/27/22 12:38 Oxygen Flow Rate 0 12/27/22 12:38 Pain Level 8 12/27/22 12:38
--- NOTE | 2022-12-27 14:35 | NUR.NOTE ---
[facility]erral [facility] 12/28 per Nandini Craven for abscessNursing Note:
== END 2022-12-27 14:04 | disposition home or self-care (01) ==
PROVIDERS: Emergency Provider Physician Assistant; PCP Physician Assistant Medical
DX: L03.116 Cellulitis of left lower limb (principal); L02.612 Cutaneous abscess of left foot
CPT/HCPCS: 99283; 99284

== ENCOUNTER 2022-12-29 14:11 | Inpatient (IN) | payer MEDICAID, SELFPAY ==
--- NOTE | 2022-12-29 | DI.CT_ITS ---
Exam(s) CT LOWER EXTREMITY LT W EXAM: CT LOWER EXTREMITY LT W CLINICAL HISTORY: foot absces/septic emobli popiteal fossa. TECHNIQUE: Imaging Protocol: Axial computed tomography images with coronal and sagittal reformatted images were created and reviewed. CONTRAST MATERIAL: Intravenous: Omnipaque 350. Contrast Volume: 100 ML COMPARISON: CR,XR XR FOOT LT COMPLETE from 12/23/2022 FINDINGS: Bones: The osseous structures and articular surfaces are intact. Bony alignment is satisfactory. N o findings to suggest osteomyelitis. There is no evidence of joint space narrowing or cystic degenera tion seen. No lytic or sclerotic lesions are identified. Soft Tissues: There is edema seen in the soft tissues on the dorsum of the foot overlying the metatar sals. No focal in capsulated fluid collection is seen at this time to suggest an abscess. There is a fluid collection at the medial aspect of the left knee adjacent to the medial femoral condyle measuri ng 2.7 x 0.7 x 0.4 cm. This may represent a small abscess. Enhancement: No abnormal enhancement is identified. The arteries are patent no evidence of occlusion or significant stenosis. IMPRESSION: 1. Soft tissue swelling and edema seen on the dorsum of the foot. No definite focal fluid collection is seen to suggest an abscess. 2. Fluid collection adjacent to the medial femoral condyle. Small abscess cannot be excluded. RADIATION DOSE DELIVERED: 682.94mGy.cm Total DLP 682.94mGy.cm Total DLP DATA REPOSITORY: All CT scans at this facility are submitted to the National Radiology Data Registry (NRDR) Dose Index Registry (DIR) with the [employer] (A[employer]). RADIATION OPTIMIZATION: All CT scans at this facility use at least one of these dose optimization te chniques: automated exposure control; mA and/or kV adjustment per patient size (includes targeted exa ms where dose is matched to clinical indication); or iterative reconstruction.
--- NOTE | 2022-12-29 14:29 | W.PM.HP.N ---
Date of service: 12/29/22 Time of Service: 14:29 Assessment and Plan Assessment and plan (1) Cellulitis and abscess of foot: Status: Acute Assessment and plan: -Probable phlebitis versus septic emboli in the leg. Ultrasound is pending -Zosyn and Vanco to cover for MRSA. -Labs and imaging pending -Patient will require debridement in a.m. and then local wound care -Pain control and coverage to prevent withdrawal from narcotics -Patient is allergic to Tylenol and should not get NSAIDs because he only has 1 kidney. -Local wound care. Further recommendations based on findings at time of surgery. (2) Smoker unmotivated to quit: Status: Acute (3) IV drug abuse: Status: Acute Assessment and plan: - He did have plain films in the ER and there was no sign of foreign body in the foot (4) Kidney malignancy: Status: Chronic Assessment and plan: - He still smokes. I did tell him that smoking is directly related to kidney cancer. He has no desire to quit. -He does not follow-up with urology or oncology. (5) S/p nephrectomy: Status: Acute History of Present Illness Narrative: Patient is a 37-year-old male with a greater than 10-year history of IVDA. He did shoot up into his left foot and developed an abscess. He has been to the ER twice and refused admission for IV antibiotics. He came into my office today he is. He has been on Bactrim and cephalexin. Bactrim was started on 12/23/2022. This has been discontinued. He started the cephalexin on 12/27. Calf is also red tender and swollen. He also has a firm well-circumscribed 2 x 2 centimeter area that is exquisitely tender on the lateral posterior area of the knee on the left. This could be either a embolus or a thrombophlebitis of a varicose vein. He is running a temp of 99.9 in the office and BP was 173/100 and heart rate was 97. He smokes 1 to 2 packs a day. He is recovered alcoholic. He uses THC products daily. He tries to use heroin daily. He cannot give me an amount. 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 He did not require chemo. He does not follow-up for cancer care. Denies complications of anesthesia. He has no history of asthma/emphysema. He is not diabetic. He has no history of CT or stroke. Patient needed to run home to take care of his animals. He said he would be gone an hour and then come back to the hospital for direct admit. Review of Systems Constitutional Constitutional: Reports chills and Reports fever(s) Comments: pain foot/leg PFSH All Active Problems History of marijuana use (Acute) Smoker unmotivated to quit (Acute) Kidney malignancy (Chronic) S/p nephrectomy (Acute) IV drug abuse (Acute) Cellulitis and abscess of foot (Acute) Medical History Kidney stones Social History (Updated 12/29/22 @ 14:39 by Payal Cui DO) Smoking/Tobacco Use Status: Current every day Tobacco Type: cigarettes Smoking risk assessment performed?: Yes Drug use: Daily Substance use type: marijuana, heroin, opiates and IV drugs Details: former alcohol use disorder Current gender identity: male Do you feel safe at home: Yes Do you feel safe in your relationship?: Yes Meds Allergies and Home Medications Allergies Allergy/AdvReac Type Severity Reaction Status Date / Time acetaminophen [From Tylenol] AdvReac Mild Nausea Unverified 12/29/22 13:35 Home Medications Medication Instructions Recorded Confirmed Type cephalexin 500 mg tablet 500 mg PO BID Cellulitis 10 days 12/23/22 12/27/22 Rx #20 tabs sulfamethoxazole 800 1 tab PO BID Cellulitis 10 days 12/23/22 12/27/22 Rx mg-trimethoprim 160 mg tablet #20 tabs (Bactrim DS) cephalexin 500 mg capsule 500 mg PO QID 10 days #40 caps 12/27/22 Rx Exam Const General: cooperative and comfortable Nutritional Appearance: average body habitus Orientation: alert, awake and oriented x3 Other: PHYSICAL EXAM GENERAL APPEARANCE: Alert, healthy appearance, oriented, x 3,? in no acute distress HYDRATION: Well hydrated HEAD, EYES, EARS, NECK, THROAT: Head is normocephalic, pupils equal, round, reactive to light and accommodation, ocular movement intact, sclera clear and no jaundice. Roscea/facial telangectasia NECK: no lymphadenopathy.? Trachea midline.? Neck supple.? No JVD LUNGS: normal respiration/normal chest excursion. ?Clear to auscultation bilaterally. ?No R/R/W ?HEART: Regular rate and rhythm. no murmurs EXTREMITY: No edema or cyanosis- R foot. L foot: 6 x 6 cm of erythema/edema/induration. Central aspect with necrotic greenish tissue. He does have pulses. He also has erythema and swelling in the calf and a hard irregular shaped nodule medial and posterior to the calf. Its not a lymph node. It feels more like a thrombophlebitis. Neurologically appears intact. He is complaining of severe pain. There is no cyanosis ABDOMEN: soft and non-tender to palpation.? Normal bowel sounds.? Results Labs Result diagrams: 12/29/22 14:19 12/29/22 14:19 Time Spent Time spent with Patient: 55-74 minutes Time was spent: preparing to see the patient(eg.review tests), obtaining and/or reviewing separately otained hiistory, ordering medications,tests, procedures, referring, communicating with other health managed care provider, indepentently interpreting results, counseling the patient and care coordination
[2022-12-29 21:19] VITALS: BP 168/90; PULSE 80; RESP 16; TEMP 36.4; O2SAT 96
[2022-12-29 21:50] VITALS: RESP 16
[2022-12-29 22:11] LABS: Source Nasal/Nares
[2022-12-29 22:16] LABS: Abs Immature Grans 0.02 10^3/uL (0.0-0.06); Absolute Basophil Count 0.09 10^3/uL (0.0-0.2); Absolute Eosinophil Count 0.23 10^3/uL (0.0-0.7); Absolute Lymphocyte Count 2.44 10^3/uL (1.2-3.4); Absolute Monocyte Count 0.45 10^3/uL (0.1-0.8); Absolute Neutrophil Count 3.65 10^3/uL (1.2-6.7); Basophils % 1.3; Eosinophils % 3.3; HCT 47.9 % (40.0-50.0); HGB 15.6 g/dL (13.5-17.5); Immature Grans % 0.3; Lymphocytes % 35.5; MCH 28.1 pg (27.0-33.0); MCHC 32.6 % (32.0-36.0); MCV 86 fL (80-95); MPV 9.2 fL (8.0-11.0); Monocytes % 6.5; Neutrophils % 53.1; Platelet Count 380 10^3/uL (130-400); RBC 5.55 10^6/uL (4.36-5.78); RDW 12.3 % (11.8-14.1); RDW-SD 39.1 fL; WBC 6.88 10^3/uL (4.4-10.8)
[2022-12-29 22:40] LABS: ALT 25 U/L (16-63); AST 23 U/L (15-37); Albumin 4.7 g/dL (3.4-5.0); Alkaline Phosphatase 135 U/L (46-116); Anion Gap 8.3 mmol/L (3-11); BUN 19 mg/dL (7-18); Bilirubin, Total 0.2 mg/dL (0.2-1.0); C-Reactive Protein 1.64 mg/dL (0.0-0.3); CO2 28.7 mmol/L (21.0-32.0); CREATININE 1.3 mg/dL (0.70-1.30); Chloride 98 mmol/L (98-107); Estimated GFR 73.47 (mL/min/1.73m2); Glucose 72 mg/dL (74-106); Potassium 4.1 mmol/L (3.5-5.1); Sodium 135 mmol/L (136-145); Total Protein 9.9 g/dL (6.4-8.2)
[2022-12-29] MEDS: Nicotine 21 MG/24 HR PATCH TD (22:40)
[2022-12-29] MEDS: cloNIDine 0.1 MG PATCH TD (22:43)
[2022-12-29] MEDS: Enoxaparin 40 MG/0.4 ML SYR SC (22:46)
[2022-12-29 22:47] LABS: D-Dimer 4961 ng/mlFEU (<500)
[2022-12-29 22:50] VITALS: BP 146/83; PULSE 82; RESP 16; TEMP 36.9; O2SAT 99
[2022-12-29 22:50] LABS: COVID-19 PCR Negative (Negative)
[2022-12-29] MEDS: Omnipaque 350 MG/ML 100 ML BTL IJ (22:58)
[2022-12-29] MEDS: Normal Saline - Diluent 50 ML VIAL IJ (22:59)
[2022-12-29] MEDS: Normal Saline Flush 10 ML SYR IVP (23:00)
[2022-12-29 23:12] LABS: Procalcitonin 0.2 ng/mL
[2022-12-29 23:28] VITALS: PULSE 79
[2022-12-29] MEDS: Normal Saline 1,000 ML 125 ML IV (23:28)
[2022-12-29] MEDS: PIPERACILLIN/TAZO 3.375 GM in Normal Saline 50 ML IVPB (23:30)
[2022-12-29] MEDS: LORazepam 2 MG/ML VIAL 1 MG IVP (23:32)
[2022-12-29 23:50] LABS: Bilirubin Negative (Negative); Blood Negative (Negative); Clarity Clear (Clear); Glucose Negative (Negative); Ketones Negative (Negative); Leukocyte Esterase Negative (Negative); Nitrite Negative (Negative); Urobilinogen 0.2 EU/dL (Up TO 0.2)
[2022-12-30] VITALS (10 sets, daily range): BP systolic 117–153; BP diastolic 69–86; PULSE 63–89; RESP 15–20; TEMP 36–36.9; O2SAT 95–100
[2022-12-30] MEDS: MORPHine 2 MG/ML SYR 4 MG IVP ×3 (00:01→14:24)
[2022-12-30 00:12] LABS: *AMPHETAMINES SCREEN URINE Negative (Negative); *BARBITURATES SCREEN URINE Negative (Negative); *BENZODIAZEPINES SCREEN URINE Negative (Negative); Cannabinoids THC Positive (Negative); Cocaine Screen,Urine Positive (Negative); METHADONE URINE SCREEN Negative (Negative); OPIATES URINE SCREEN Negative (Negative)
[2022-12-30 00:17] LABS: Tricyclic Antidepressants Negative (Negative)
--- NOTE | 2022-12-30 00:42 | DI.VRAD_ITS ---
PROCEDURE INFORMATION: Exam: CT Left Lower Extremity With Contrast; Lower Leg Exam date and time: 12/29/2022 10:54 PM Age: 37 years old Clinical indication: Other: Foot absces/septic emobli popiteal fossa TECHNIQUE: Imaging protocol: CT of the Left lower extremity with intravenous contrast was performed. Exam focused on the lower leg. Radiation optimization: All CT scans at this facility use at least one of these dose optimization techniques: automated exposure control; mA and/or kV adjustment per patient size (includes targeted exams where dose is matched to clinical indication); or iterative reconstruction. Contrast material: OMNIPAQUE 350; Contrast volume: 100 ml; Contrast route: INTRAVENOUS (IV); COMPARISON: CR XR FOOT LT COMPLETE 12/23/2022 8:39 PM FINDINGS: Bones/joints: There is a fluid collection present within the medial aspect of the left knee at the distal femoral region with a thick wall measuring 27 x 6.5 x 38 mm best demonstrated on image 89 series 6 and image 292 series 5 a small abscess cannot be excluded. There is a small femoral tibial joint effusion and there is a small suprapatellar joint effusion present. No evidence of fracture dislocation. Soft tissues: There is abnormally increased venous and arterial enhancement, soft tissue fluid and edema present within the left calf and foot. Vasculature: No evidence of arterial or venous vascular occlusion although there does appear to be considerable hyperemia within the left lower extremity. Other findings: I do not identify a thick-walled fluid collection to suggest abscess within the left foot. IMPRESSION: 1. There is a fluid collection present within the medial aspect of the left knee at the distal femoral region with a thick wall measuring 27 x 6.5 x 38 mm best demonstrated on image 89 series 6 and image 292 series 5 a small abscess cannot be excluded. 2. There is abnormally increased venous and arterial enhancement, soft tissue fluid and edema present within the left calf and foot. 3. I do not identify a thick-walled fluid collection to suggest abscess within the left foot. 4. There is a small femoral tibial joint effusion and there is a small suprapatellar joint effusion present. 5. No evidence of arterial or venous vascular occlusion although there does appear to be considerable hyperemia within the left lower extremity. Dictated and Authenticated by: Soham Li MD. Ordering:MILLY Moe MD
[2022-12-30] MEDS: PIPERACILLIN/TAZO 3.375 GM in Normal Saline 50 ML IVPB ×3 (05:25→21:24)
[2022-12-30] MEDS: Normal Saline 1,000 ML 125 ML IV ×2 (07:50→19:26)
[2022-12-30] MEDS: Normal Saline Flush 10 ML SYR IVP ×3 (07:50→21:25)
--- NOTE | 2022-12-30 08:10 | PGE_ITS ---
Date of Service Date of service: 12/30/22 Time of Service: 08:10 Assessment and Plan Assessment and plan (1) Cellulitis and abscess of foot: Status: Acute Assessment and plan: Overall, the foot seems to be improving. He has no leukocytosis or fevers this morning. I think to see how the foot does over the next 24 hours. If it remains the same, we will plan for incisional debridement tomorrow. Subjective Subjective Interval history since last seen: Mark feels like his foot continues approved. It is less swollen with elevation. He has a little bit of pain this morning, but overall it is manageable. Exam Extrem Left lower extremity: foot (Swollen, with moderate erythema around the dorsum. seropurulent discharge) Details: normal capillary refill, toes with normal ROM, vascular exam Details: posterior tibial pulse present and motor-sensory exam Details: two point discrimination normal Objective Last Vital Signs Temp 96.8 F L 12/30/22 07:28 Pulse 72 12/30/22 07:28 Resp 19 12/30/22 07:28 BP 139/80 12/30/22 07:28 Pulse Ox 98 12/30/22 07:28 Laboratory Results - last 24 hr 12/29/22 12/29/22 12/29/22 21:30 21:45 21:45 WBC 6.88 RBC 5.55 Hgb 15.6 Hct 47.9 MCV 86 MCH 28.1 MCHC 32.6 RDW 12.3 Plt Count 380 MPV 9.2 Immature Gran % 0.3 Neutrophils % 53.1 Lymphocytes % 35.5 Monocytes % 6.5 Eosinophils % 3.3 Basophils % 1.3 Nucleated RBC % 0.0 Absolute Neutrophils 3.65 Absolute Lymphocytes 2.44 Absolute Monocytes 0.45 Absolute Eosinophils 0.23 Absolute Basophils 0.09 D-Dimer Sodium 135 L Potassium 4.1 Chloride 98 Carbon Dioxide 28.7 Anion Gap 8.3 BUN 19 H Creatinine 1.3 Est GFR (CKD-EPI 2020) 73.47 Glucose 72 L Calcium 10.0 Total Bilirubin 0.2 AST 23 ALT 25 Alkaline Phosphatase 135 H C-Reactive Protein 1.64 H Total Protein 9.9 H Albumin 4.7 Procalcitonin Urine Color Urine Clarity Urine pH Ur Specific [place] Urine Protein Urine Ketones Urine Blood Urine Nitrite Urine Bilirubin Urine Urobilinogen Ur Leukocyte Esterase Urine Glucose Urine Opiates Screen Urine Methadone Screen Ur Barbiturates Screen Ur Tricyclics Screen Ur Amphetamines Screen U Benzodiazepines Scrn Urine Cocaine Screen Ur THC Screen COVID-19 Source Nasal/Nares SARS-CoV-2 (PCR) Negative 12/29/22 12/29/22 12/29/22 21:45 21:45 23:35 WBC RBC Hgb Hct MCV MCH MCHC RDW Plt Count MPV Immature Gran % Neutrophils % Lymphocytes % Monocytes % Eosinophils % Basophils % Nucleated RBC % Absolute Neutrophils Absolute Lymphocytes Absolute Monocytes Absolute Eosinophils Absolute Basophils D-Dimer 4961 H Sodium Potassium Chloride Carbon Dioxide Anion Gap BUN Creatinine Est GFR (CKD-EPI 2020) Glucose Calcium Total Bilirubin AST ALT Alkaline Phosphatase C-Reactive Protein Total Protein Albumin Procalcitonin 0.2 Urine Color Yellow Urine Clarity Clear Urine pH 7.0 Ur Specific [place] 1.020 Urine Protein Negative Urine Ketones Negative Urine Blood Negative Urine Nitrite Negative Urine Bilirubin Negative Urine Urobilinogen 0.2 Ur Leukocyte Esterase Negative Urine Glucose Negative Urine Opiates Screen Urine Methadone Screen Ur Barbiturates Screen Ur Tricyclics Screen Ur Amphetamines Screen U Benzodiazepines Scrn Urine Cocaine Screen Ur THC Screen COVID-19 Source SARS-CoV-2 (PCR) 12/29/22 23:35 WBC RBC Hgb Hct MCV MCH MCHC RDW Plt Count MPV Immature Gran % Neutrophils % Lymphocytes % Monocytes % Eosinophils % Basophils % Nucleated RBC % Absolute Neutrophils Absolute Lymphocytes Absolute Monocytes Absolute Eosinophils Absolute Basophils D-Dimer Sodium Potassium Chloride Carbon Dioxide Anion Gap BUN Creatinine Est GFR (CKD-EPI 2020) Glucose Calcium Total Bilirubin AST ALT Alkaline Phosphatase C-Reactive Protein Total Protein Albumin Procalcitonin Urine Color Urine Clarity Urine pH Ur Specific [place] Urine Protein Urine Ketones Urine Blood Urine Nitrite Urine Bilirubin Urine Urobilinogen Ur Leukocyte Esterase Urine Glucose Urine Opiates Screen Negative Urine Methadone Screen Negative Ur Barbiturates Screen Negative Ur Tricyclics Screen Negative Ur Amphetamines Screen Negative U Benzodiazepines Scrn Negative Urine Cocaine Screen Positive A Ur THC Screen Positive A COVID-19 Source SARS-CoV-2 (PCR)
[2022-12-30] MEDS: VANCOMYCIN/WATER (PEG) 2 GM/400 ML BAG IVPB (09:08)
--- NOTE | 2022-12-30 12:19 | PDOC.CMIN ---
- If Service Date Differs Date of service: 12/30/22 Time of Service: 12:19 Care Management Initial Assess REASON FOR HOSPITALIZATION:: Cellulitis and abscess, SIRS, IVDA-opiode PAST MEDICAL HISTORY/PAST SURGICAL HISTORY:: All Active Problems. History of marijuana use (Acute). Smoker unmotivated to quit (Acute). Kidney malignancy (Chronic). S/p nephrectomy (Acute). IV drug abuse (Acute). Cellulitis and abscess of foot (Acute). Medical History. Kidney stones PREVIOUS FUNCTIONAL STATUS/SOCIAL/FAMILY SUPPORTS:: Mark lives in [place], alone. His mother, Kenisha, lives nearby and is supportive. 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 He is independent at baseline. CURRENT FUNCTIONAL STATUS:: Mark was lying in bed when CM met with him. He stated that he saw the MD earlier today, and was not sure what his plan was, but that he may need to have his wound debrided. Per report, he will likely have his wound debrided tomorrow, if indicated after his assessment. CM will continue to follow. ADVANCE DIRECTIVES:: Not on file. Has patient been provided with info about the portal/API?: Yes Did the patient sign up for the portal?: No CODE STATUS:: Full Code INSURANCE COVERAGE / FINANCIAL ISSUES:: [employer] CURRENT HOME/COMMUNITY SERVICES/EQUIPMENT:: No known services or equipment. PRIMARY CARE PHYSICIAN:: Yury Allen POTENTIAL DISCHARGE NEEDS:: Follow up appointments. PATIENT/FAMILY EDUCATION NEEDS:: Review discharge instructions and limitations, discussion of self care needs including ask me three. ANTICIPATED BARRIERS TO DISCHARGE:: None identified at this time. TRANSPORTATION:: Via private vehicle. PLAN:: Anticipate Mark will return home when medically cleared. He will be driven home via private vehicle. He will follow up with his PCP and discharge plan of care. CM will continue to follow.
--- NOTE | 2022-12-30 15:59 | PHA.REVIEW2 ---
Pharmacy Admission Review - Admission Clinical Review (Last Updated 12/29/22 @ 22:48 by Payal Cui DO) Smoker unmotivated to quit (Acute) IV drug abuse (Acute) Cellulitis and abscess of foot (Acute) acetaminophen [From Tylenol] Adverse Reaction (Mild, Unverified 12/29/22 13:35) Nausea Resuscitation Status Full Code Height 6 ft Weight 90.9 kg - Renal Dosing Renal Dosing: BUN 19 mg/dL (7-18) H 12/29/22 21:45 Creatinine 1.3 mg/dL (0.70-1.30) 12/29/22 21:45 Medications needing adjustments: Reviewed (eCrCl 100 ml/min) - Anticoagulation Anticoagulation: Hgb 15.6 g/dL (13.5-17.5) 12/29/22 21:45 Hct 47.9 % (40.0-50.0) 12/29/22 21:45 Plt Count 380 10^3/uL (130-400) 12/29/22 21:45 Creatinine 1.3 mg/dL (0.70-1.30) 12/29/22 21:45 DVT Prophylaxis: Reviewed Medications: Enoxaparin - Opiate Usage Evaluate Pain Scale/Pains Meds: Reviewed (morphine 4mg q1h prn; recent IVDA with heroin, most recent clinical opiate withdrawal score was 0) Scheduled Bowel Reg ordered if on Opiates?: No (will notify MD) - Relevant Labs Sodium 135 mmol/L (136-145) L 12/29/22 21:45 Potassium 4.1 mmol/L (3.5-5.1) 12/29/22 21:45 Chloride 98 mmol/L (98-107) 12/29/22 21:45 C-Reactive Protein 1.64 mg/dL (0.0-0.3) H 12/29/22 21:45 Electrolytes, C-Reactive P, ESR: N/A - DM Control DM Control: Glucose 72 mg/dL (74-106) L 12/29/22 21:45 DM Control: N/A - Cardiac Review BP, HR, EF%: Reviewed - Qtc Review QTc: N/A - IV to PO Switch IV Medications: Reviewed - Home Meds Home Med List reviewed: Reviewed Relevent Home Meds Not ordered & why?: only filled short course of PO abx recently, nothing chronic - Current meds Current Medication Order Review: Reviewed (Zosyn 3.375 q8h extended infusion + Vanco 1250 q8h, trough to be drawn tomorrow @ 1500)
[2022-12-30] MEDS: VANCOMYCIN/WATER (PEG) 1.25 GM/250 ML BAG IVPB ×2 (17:08→23:29)
[2022-12-30] MEDS: Enoxaparin 40 MG/0.4 ML SYR SC (21:23)
[2022-12-31] VITALS (7 sets, daily range): BP systolic 120–139; BP diastolic 62–79; PULSE 51–83; RESP 17–18; TEMP 36.2–36.5; O2SAT 96–98
[2022-12-31] MEDS: Normal Saline 1,000 ML 125 ML IV (03:36)
[2022-12-31] MEDS: PIPERACILLIN/TAZO 3.375 GM in Normal Saline 50 ML IVPB (06:15)
[2022-12-31 07:00] LABS: HCT 40.8 % (40.0-50.0); HGB 13.1 g/dL (13.5-17.5); MCH 28.5 pg (27.0-33.0); MCHC 32.1 % (32.0-36.0); MCV 89 fL (80-95); Platelet Count 308 10^3/uL (130-400); RBC 4.59 10^6/uL (4.36-5.78); RDW 12.8 % (11.8-14.1); WBC 5.22 10^3/uL (4.4-10.8)
--- NOTE | 2022-12-31 07:32 | W.PM.PROGNOT ---
Date of Service Date of service: 12/31/22 Time of Service: 07:32 Assessment and Plan Assessment and plan (1) Cellulitis and abscess of foot: Status: Acute Assessment and plan: Wound on dorsum of the left foot, appears to be improving. Erythema continues to be present, however more localized. No fluctulance or focal fluid collection noted on exam or on CT scan. Pain is well controlled Dressing changed with 4x4 dressing and URSZULA wrap Continue IV antibiotics, will need to transition to PO antibiotics Subjective Subjective Interval history since last seen: Patient is resting comfortably in bed. He states that his Left foot is feeling much better and he is eager to go home. Exam Const General: cooperative, healthy appearing and comfortable Orientation: alert and oriented x3 Resp Effort & Inspection: normal respiratory effort, no audible wheezes and no cough Extrem Other: Left foot- Dorsum of the foot, moderate swelling and erythema. No area of fluctulance. Minimal sanguineous drainage. Objective Last Vital Signs Temp 36.5 C 12/31/22 03:40 Pulse 51 L 12/31/22 03:40 Resp 18 12/31/22 03:40 BP 120/62 12/31/22 03:40 Pulse Ox 96 12/31/22 03:40 Laboratory Results - last 24 hr 12/31/22 06:35 WBC 5.22 RBC 4.59 Hgb 13.1 L D Hct 40.8 MCV 89 MCH 28.5 MCHC 32.1 RDW 12.8 Plt Count 308 MPV 9.0 Time Spent with Patient Time Spent with Patient: <25 minutes Time was spent: preparing to see the patient(eg.review tests)
[2022-12-31] MEDS: MORPHine 2 MG/ML SYR 4 MG IVP (08:35)
[2022-12-31] MEDS: VANCOMYCIN/WATER (PEG) 1.25 GM/250 ML BAG IVPB (08:36)
--- NOTE | 2022-12-31 12:07 | DSE_ITS ---
Date of service: 12/31/22 Time of Service: 12:07 DS: Diagnosis Discharge Diagnosis (1) Cellulitis and abscess of foot: Status: Acute Discharge Plan Disposition Patient Disposition: Home Condition: Improving Discharge Details Reason For Visit: Cellulitis and Abscess/SIRS/IVDA-Opioids Admit Date/Time: 12/29/22 14:11 Admit Provider: Payal Cui Attending Provider: Payal Cui Primary Care Provider: Yury Allen Hospital Course Hospital Course: Mark is a 37-year-old male with a soft tissue infection over the dorsum of his left foot. Attempts were made to treat this with antibiotics as an outpatient, but his swelling and erythema worsened. He was brought into the hospital with a plan for operative debridement. Broad-spectrum antibiotics were initiated, within 24 hours, he had decreasing erythema and swelling of the left foot. The wound was managed with topical dressing care, and he remained afebrile with a normal white blood cell count. Home Meds and New Rx's Prescriptions: Continued cephalexin 500 mg tablet 500 mg PO BID 10 Days Qty: 20 0RF Rx Instructions: Take 1 tablet by mouth with food twice daily for 10 days Discharge Instructions Additional Instructions: Resume your cephalexin 500 mg, taking 1 tablet in the morning, 1 tablet in the evening Resume the Bactrim (trimethoprim sulfa) taking 1 tablet in the morning, and 1 tablet in the evening Keep your foot elevated whenever you are sitting or lying down. Soak your left foot and 1 gallon of warm water mixed with half a cup of baking soda or Epsom salts once in the morning, and once in the evening. After each soak, wash the foot with warm soapy water and pat dry. Dress your wound with loosely fluffed gauze, and an Myke wrap starting at your toes wrapping up past your ankle. Stand Alone Forms: Nursing Discharge Form Referrals: Rex Joseph MD [ [facility] STAFF PHYSICIAN] - (01/04 at 1:15 PM) Activity:: Activity as Tolerated Equipment/Supplies:: Gauze and clean Myke wrap Diet:: As Tolerated DS: Summary Time Spent with Patient providing and/or coordinating discharge services: Greater than 30 minutes Status at Discharge Functional status at discharge: independent ambulation Overall status at discharge: patient is progressing back to baseline Mental Status: mental status grossly normal Speech and Movement: speech and movement normal Mood: congruent mood Affect: normal affect Exam Skin Other: The erythema has resolved, there are small foci of patchy necrosis over the dorsum of the foot. It is far less tender. The foot is nonswollen. Psych Mental Status: mental status grossly normal Speech and Movement: speech and movement normal Mood: congruent mood Affect: normal affect DS: Data Vitals/I&O Vitals and I&O: Vital Signs Temperature 97.2 F L 12/31/22 11:04 Temperature Source Tympanic 12/31/22 11:04 Pulse 79 12/31/22 11:04 Pulse Rhythm Regular 12/31/22 07:40 Respiratory Rate 17 12/31/22 11:04 Respiratory Effort Normal, Non-Labored 12/31/22 07:40 Respiratory Depth Normal 12/31/22 07:40 Respiratory Pattern Normal 12/31/22 07:40 Blood Pressure 136/66 12/31/22 11:04 Pulse Oximetry 97 12/31/22 11:04 Oxygen Delivery Method Room Air 12/31/22 11:04 Oxygen Flow Rate 0 12/31/22 11:04 Pain Level 8 12/31/22 11:04 Intake & Output 12/30/22 12/31/22 12/31/22 23:59 11:59 23:59 Intake Total 1700 / 2800 19090 Balance 1700 / 2800 1909 Intake: IV 1300 / 2400 1550 / 1550 Oral 400 / 400 360 / 360 Other: Urine Color Yellow Urine Appearance Clear Comment pt stated he voided x1 patient voids independently Voiding Methods Toilet Toilet Data Completed and Pending Labs on day of discharge: Labs from last 24 hours 12/31/22 12/31/22 12/31/22 15:00 15:00 06:35 WBC 5.22 RBC 4.59 Hgb 13.1 L D Hct 40.8 MCV 89 MCH 28.5 MCHC 32.1 RDW 12.8 Plt Count 308 MPV 9.0 Creatinine Pending Est GFR (CKD-EPI 2020) Pending Vancomycin Trough Pending Preliminary micro results at discharge 12/29/22 21:30 Wound Culture - Preliminary Foot - Left 12/29/22 21:45 Blood Culture - Preliminary Blood NO GROWTH 24 HOURS 12/29/22 22:00 Blood Culture - Preliminary Blood NO GROWTH 24 HOURS PFSH All Active Problems (Updated 12/29/22 @ 22:48 by Payal Cui DO) History of marijuana use (Acute) Smoker unmotivated to quit (Acute) IV drug abuse (Acute) Cellulitis and abscess of foot (Acute) Medical History (Updated 12/29/22 @ 22:48 by Payal Cui DO) Alcohol abuse, in remission Kidney malignancy Kidney stones S/p nephrectomy Social History (Updated 12/29/22 @ 14:39 by Payal Cui DO) Smoking/Tobacco Use Status: Current every day Tobacco Type: cigarettes Smoking risk assessment performed?: Yes Alcohol Intake: former Drug use: Daily Substance use type: marijuana, heroin, opiates and IV drugs Details: former alcohol use disorder. stop drinking alcohol for a year per pt Current gender identity: male Do you feel safe at home: Yes Do you feel safe in your relationship?: Yes Time Spent with Patient Time Spent with Patient: 45-69 minutes Time was spent: ordering medications,tests, procedures and counseling the patient
--- NOTE | 2022-12-31 12:43 | W.PM.DS.N ---
Date of service: 12/31/22 Time of Service: 12:45 DS: Diagnosis Discharge Diagnosis (1) Cellulitis and abscess of foot: Status: Acute Discharge Plan Disposition Patient Disposition: Home Condition: Improving Discharge Details Reason For Visit: Cellulitis and Abscess/SIRS/IVDA-Opioids Admit Date/Time: 12/29/22 14:11 Admit Provider: Payal Cui Attending Provider: Payal Cui Primary Care Provider: Yury Allen Hospital Course Hospital Course: Mark is a 37-year-old male with a soft tissue infection over the dorsum of his left foot. Attempts were made to treat this with antibiotics as an outpatient, but his swelling and erythema worsened. He was brought into the hospital with a plan for operative debridement. Broad-spectrum antibiotics were initiated, within 24 hours, he had decreasing erythema and swelling of the left foot. The wound was managed with topical dressing care, and he remained afebrile with a normal white blood cell count. Home Meds and New Rx's Prescriptions: New cephalexin 500 mg tablet 500 mg PO BID Qty: 16 0RF sulfamethoxazole-trimethoprim [Bactrim DS] 800-160 mg tablet 1 tab PO BID Qty: 16 0RF Discontinued cephalexin 500 mg tablet 500 mg PO BID 10 Days Qty: 20 0RF Rx Instructions: Take 1 tablet by mouth with food twice daily for 10 days Discharge Instructions Instructions: Cellulitis (DC) Additional Instructions: Resume your cephalexin 500 mg, taking 1 tablet in the morning, 1 tablet in the evening Resume the Bactrim (trimethoprim sulfa) taking 1 tablet in the morning, and 1 tablet in the evening Keep your foot elevated whenever you are sitting or lying down. Soak your left foot and 1 gallon of warm water mixed with half a cup of baking soda or Epsom salts once in the morning, and once in the evening. After each soak, wash the foot with warm soapy water and pat dry. Dress your wound with loosely fluffed gauze, and an Myke wrap starting at your toes wrapping up past your ankle. Stand Alone Forms: Nursing Discharge Form Referrals: Rex Joseph MD [ [facility] STAFF PHYSICIAN] - 01/04/23 1:15 pm (01/04 at 1:15 PM) Activity:: Activity as Tolerated Equipment/Supplies:: Gauze and clean Myke wrap Diet:: As Tolerated Discharge Orders Discharge Orders: Discharge Order (Routine); Ordered 12/31/22 Ordered By: Rex Joseph DS: Summary Time Spent with Patient providing and/or coordinating discharge services: Greater than 30 minutes Status at Discharge Functional status at discharge: independent ambulation Overall status at discharge: patient is progressing back to baseline Mental Status: mental status grossly normal Speech and Movement: speech and movement normal Mood: congruent mood Affect: normal affect Exam Psych Mental Status: mental status grossly normal Speech and Movement: speech and movement normal Mood: congruent mood Affect: normal affect DS: Data Vitals/I&O Vitals and I&O: Vital Signs Temperature 97.2 F L 12/31/22 11:04 Temperature Source Tympanic 12/31/22 11:04 Pulse 79 12/31/22 11:04 Pulse Rhythm Regular 12/31/22 07:40 Respiratory Rate 17 12/31/22 11:04 Respiratory Effort Normal, Non-Labored 12/31/22 07:40 Respiratory Depth Normal 12/31/22 07:40 Respiratory Pattern Normal 12/31/22 07:40 Blood Pressure 136/66 12/31/22 11:04 Pulse Oximetry 97 12/31/22 11:04 Oxygen Delivery Method Room Air 12/31/22 11:04 Oxygen Flow Rate 0 12/31/22 11:04 Pain Level 8 12/31/22 11:04 Intake & Output 12/30/22 12/31/22 12/31/22 23:59 11:59 23:59 Intake Total 1700 / 2800 1909 / 1910 Balance 1700 / 2800 1909 Intake: IV 1300 / 2400 1550 / 1550 Oral 400 / 400 360 / 360 Other: Urine Color Yellow Urine Appearance Clear Comment pt stated he voided x1 patient voids independently Voiding Methods Toilet Toilet Data Completed and Pending Labs on day of discharge: Labs from last 24 hours 12/31/22 12/31/22 12/31/22 15:00 15:00 06:35 WBC 5.22 RBC 4.59 Hgb 13.1 L D Hct 40.8 MCV 89 MCH 28.5 MCHC 32.1 RDW 12.8 Plt Count 308 MPV 9.0 Creatinine Pending Est GFR (CKD-EPI 2020) Pending Vancomycin Trough Pending Preliminary micro results at discharge 12/29/22 21:30 Wound Culture - Preliminary Foot - Left 12/29/22 21:45 Blood Culture - Preliminary Blood NO GROWTH 24 HOURS 12/29/22 22:00 Blood Culture - Preliminary Blood NO GROWTH 24 HOURS PFSH All Active Problems (Updated 12/29/22 @ 22:48 by Payal Cui DO) History of marijuana use (Acute) Smoker unmotivated to quit (Acute) IV drug abuse (Acute) Cellulitis and abscess of foot (Acute) Medical History (Updated 12/29/22 @ 22:48 by Payal Cui DO) Alcohol abuse, in remission Kidney malignancy Kidney stones S/p nephrectomy Social History (Updated 12/29/22 @ 14:39 by Payal Cui DO) Smoking/Tobacco Use Status: Current every day Tobacco Type: cigarettes Smoking risk assessment performed?: Yes Alcohol Intake: former Drug use: Daily Substance use type: marijuana, heroin, opiates and IV drugs Details: former alcohol use disorder. stop drinking alcohol for a year per pt Current gender identity: male Do you feel safe at home: Yes Do you feel safe in your relationship?: Yes Time Spent with Patient Time Spent with Patient: 45-69 minutes Time was spent: preparing to see the patient(eg.review tests), ordering medications,tests, procedures and counseling the patient
--- NOTE | 2022-12-31 16:57 | PDOC.CMDIS ---
- If Service Date Differs Date of service: 12/31/22 Time of Service: 16:57 LACE Index Scoring Tool - Questions: Length of Stay (in days): 2 Acuity (Admit via E.D.?): No E.D. Visits: 2 - Answers: Total Score: 4 Risk of Readmission: Low Risk Care Management Discharge Reason for Hospitalization: Cellulitis and abscess, SIRS, IVDA-opiode Discharge Plan: Mark returned home today with no new services. His mother drove him home via private vehicle. He will follow up with surgical services and his discharge plan of care. Patient/Family Education Needs: Review discharge instructions and limitations, discussion of self care needs including ask me three.
== END 2022-12-31 13:25 | disposition home or self-care (01) | DRG 603 ==
PROVIDERS: Surgery; Admitting Provider Surgery; PCP Physician Assistant Medical; Visit Provider Surgery
DX: L03.116 Cellulitis of left lower limb (principal); L02.612 Cutaneous abscess of left foot; Z85.528 Personal history of other malignant neoplasm of kidney; Z90.5 Acquired absence of kidney; F19.10 Other psychoactive substance abuse, uncomplicated; F17.210 Nicotine dependence, cigarettes, uncomplicated; F10.21 Alcohol dependence, in remission; F12.90 Cannabis use, unspecified, uncomplicated; F11.10 Opioid abuse, uncomplicated; I80.02 Phlebitis and thrombophlebitis of superficial vessels of left lower extremity
CPT/HCPCS: 36410; 36415; 80053; 80307; 84145; 85027; 87040; 87635; J1650; 73701; 80202; 81003; 82565; 85025; 85379; 86140; 87070; 87205; J2060; J2270; J2543; J3490

== ENCOUNTER 2023-12-17 16:58 | Emergency (ER) | payer MEDICAID, SELFPAY ==
[2023-12-17 17:05] VITALS: BP 160/88; PULSE 80; RESP 17; TEMP 36.6; O2SAT 97
--- OUTSIDE RECORDS SUMMARY | 2023-12-17 17:07 | XMS_ITS | Continuity of Care Document ---
Author Name Unknown Organization [facility] Address [address] [place] [id number] Care Team Providers Care Obstetrics Tech Name Role Phone Neha Kat Primary Care Physician U navailable Encounter BVT Date(s): 01/13/23 - 01/13/[address] [address]- [phone] Encounter Diagnosis Abscess of left foot(Discharge Diagnosis) - 01/13/23 Discharge Disposition: Home or Self Care Attending Physician: Shi Benitez MD Admitting Physician: Shi Benitez MD Allergies, Adverse Reactions, Alerts No Known Allergies Assessment and Plan Extracted from: Title:General Medical Problem *ED Author:Shi Benitez MD Date:01/13/23 History of Present Illness pt is a 37 yo male who presents to the ED with left foot pain and swelling. Pt was on a course of antibiotics for a left foot infection that finished a few days ago. he states overall his foot is much better than his initial infection however over the last day he noticed a small amount of purulent drainage from the wound and a little bit of swelling that had completely resolved on the abx. he denies fevers. he denies any spreading redness. he did notice a lump on the side of his knee that is nontender for 2 weeks. he is a former IV drug user but has not injected in several months and has not ever injected in the site of this infection Review of Systems Constitutional symptoms: No fever, Skin symptoms: Lesion, No rash, Respiratory symptoms: No shortness of breath, Cardiovascular symptoms: No chest pain, Gastrointestinal symptoms: No abdominal pain, Genitourinary symptoms Health Status Allergies: Allergic Reactions (All) No Known Allergies. Medications: (Selected) Inpatient Medications Ordered cephalexin: 500 mg = 1 cap(s), Oral, Once doxycycline: 100 mg = 1 cap(s), Oral, Once. Past Medical/ Family/ Social History Medical history: No active or resolved past medical history items have been selected or recorded.. Surgical history: No active procedure history items have been selected or recorded.. Family history: No family history items have been selected or recorded.. Social history: Social & Psychosocial History Social History Alcohol Past Substance Abuse Current, Marijuana, Daily Comment: IV drug use 1.5 months ago (01/13/2023 01:28 - Michelle Manzanares RN) Tobacco Current everyday tobacco user Tobacco Use:. 1 ppd per day. Electronic Cigarette/Vaping Electronic Cigarette Use: Never. Psychosocial History No active psychosocial history has been recorded . Problem list: No qualifying data available . Physical Examination Vital Signs Vital Signs 01/13/2023 1:23 EST Temperature Temporal Artery 36.3 DegC Peripheral Pulse Rate 56 bpm LOW Respiratory Rate 14 br/min Systolic Blood Pressure 141 mmHg HI Diastolic Blood Pressure 82 mmHg SpO2 100 % . Measurements 01/13/2023 1:32 EST Height/Length Dosing 182.880 cm Weight Dosing 92.990 kg 01/13/2023 1:23 EST Height/Length Estimated 182.880 cm Weight Estimated 92.990 kg . Basic Oxygen Information 01/13/2023 1:23 EST Oxygen Therapy Room air . General: Alert, no acute distress. Skin: Warm, dry, left foot with a 2x2cm dorsal midfoot fluctuant mass. scab over the top. mildly ttp. mildly erythematous but not warm. pulses intact. rom strength and sensation intact medial right calf with palpable lipoma. no skin changes, nontender, easily mobile.. Head: Atraumatic. Neck: Supple. Respiratory: Respirations are non-labored. Neurological: Alert and oriented to person, place, time, and situation. Psychiatric: Cooperative. Medical Decision Making Patient is a 37-year-old male who presents emergency department with left foot pain and swelling. Patient is overall well-appearing in no acute distress. Vital signs unremarkable. Patient appears to have a small recurrent abscess in the site of his prior infection. There is no clear overlying cellulitis - area of midly erythematous but not warm or indurated. There is no evidence of systemic illness such as sepsis. Suspect patient simply requires a longer course of antibiotics as well as an I&D. Not feel patient requires lab work at this point. See I&D procedure note below. We will place him on a course of antibiotics. I did discuss with him that he should have follow-up given that his symptoms recurred after a course of antibiotics. However I do not feel like patient requires inpatient management or IV antibiotics or any surgical intervention at this time. I did discuss with patient that it is possible that this could be needed in the future if his second course of antibiotics fails. The lump on his leg appears to be a lipoma. No evidence of lymphangitis or other infectious etiology. Reexamination/ Reevaluation Vital signs Basic Oxygen Information 01/13/2023 1:23 EST Oxygen Therapy Room air Impression and Plan Diagnosis Abscess of left foot ([id number] L02.612, Discharge, Medical) Plan Condition: Improved. Disposition: Discharged: Time 01/13/2023 02:09:00, to home. Prescriptions: Launch prescriptions Pharmacy: cephalexin 500 mg oral capsule (Prescribe): 500 mg = 1 cap(s), Oral, QID, for 14 day(s), 56 cap(s), 0 Refill(s) doxycycline hyclate 100 mg oral capsule (Prescribe): 100 mg = 1 cap(s), Oral, Daily, for 14 day(s), 14 cap(s), 0 Refill(s). Patient was given the following educational materials: Skin Abscess, Incision and Drainage, Incision and Drainage, Skin Abscess. Follow up with: Follow up with primary care provider Within 1 to 2 days Take Tylenol/Motrin for pain/fever Return to ED if symptoms worsen; ; Return to Emergency Department Within As needed. Counseled: Patient, Regarding diagnosis, Regarding treatment plan, Regarding prescription, Patient indicated understanding of instructions. Functional Status 01/13/23 History of Fall in Last 3 Months [place] N o Recent Travel History No recent travel COVID-19 Screening None Medications cephalexin 500 mg oral capsule 500 mg = 1 cap(s), Oral, QID, # 56 cap(s), 0 Refill(s) Start Date: 01/13/23 Stop Date: 01/27/23 Status: Ordered doxycycline hyclate 100 mg oral capsule 100 mg = 1 cap(s), Oral, Daily, # 14 cap(s), 0 Refill(s) Start Date: 01/13/23 Stop Date: 01/27/23 Status: Ordered Mental Status 01/13/23 Level of Consciousness Alert Vital Signs Most recent to oldest [Reference Range]: 1 Temperature Temporal Artery [36.3-37.8 D egC] 36.3 DegC (01/13/23 1:23 AM) Peripheral Pulse Rate [60-100 bpm] 56 bp m *LOW* (01/13/23 1:23 AM) Respiratory Rate [14-20 br/min] 14 br/mi n (01/13/23 1:23 AM) Blood Pressure [90-140/60-90 mmHg] 141/8 2mmHg *HI* (01/13/23 1:23 AM) SpO2 [92-100 %] 100 % (01/13/23 1:23 AM) Height/Length Estimated 182.880 cm (01/13/23 1:23 AM) Height/Length Dosing 182.880 cm (01/13/23 1:32 AM) Weight Estimated 92.990 kg (01/13/23 1:23 AM) Weight Dosing 92.990 kg (01/13/23 1:32 AM) Social History Social History Type Response Tobacco Current everyday tob acco user Tobacco Use:. 1 ppd per day. Sex Hospital Discharge Instructions Patient Education 01/13/2023 02:18:25 Incision and Drainage Incision and Drainage Incision and drainage is a surgical procedure to open and drain a fluid-filled sac. The sac may be filled with pus, mucus, or blood. Examples of fluid-filled sacs that may need surgical drainage include cysts, skin infections (abscesses), and red lumps that develop from a ruptured cyst or a small abscess (boils). You may need this procedure if the affected area is large, painful, infected, or not healing well. Tell a health care provider about: ??? Any allergies you have. ??? All medicines you are taking, including vitamins, herbs, eye drops, creams, and opiy-iab-melwjwk medicines. ??? Any problems you or family members have had with anesthetic medicines. ??? Any blood disorders you have or have had. ??? Any surgeries you have had. ??? Any medical conditions you have or have had. ??? Whether you are or may be . What are the risks? Generally, this is a safe procedure. However, problems may occur, including: ??? Infection. ??? Bleeding. ??? Allergic reactions to medicines. ??? Scarring. ??? The cyst or abscess returns. ??? Damage to nerves or vessels. What happens before the procedure? Medicine Ask your health care provider about: ??? Changing or stopping your regular medicines. This is especially important if you are taking diabetes medicines or blood thinners. ??? Taking medicines such as aspirin and ibuprofen. These medicines can thin your blood. Do not take these medicines unless your health care provider tells you to take them. ??? Taking erip-orf-gieczwh medicines, vitamins, herbs, and supplements. Tests You may have an exam or testing. These may include: ??? Ultrasound or other imaging tests to see how large or deep the fluid-filled sac is. ??? Blood tests to check for infection. General instructions ??? Follow instructions from your health care provider about eating or drinking restrictions. ??? Plan to have someone take you home from the hospital or clinic. ??? Ask your health care provider whether a responsible adult should care for you for at least 24 hours after you leave the hospital or clinic. This is important. ??? You may get a tetanus shot. ??? Ask your health care provider: ??? How your surgery site will be marked or identified. ??? What steps will be taken to help prevent infection. These may include: ??? Removing hair at the surgery site. ??? Washing skin with a germ-killing soap. ??? Receiving antibiotic medicine. What happens during the procedure? An IV may be inserted into one of your veins. ??? You will be given one or more of the following: ??? A medicine to help you relax (sedative). ??? A medicine to numb the area (local anesthetic). ??? A medicine to make you fall asleep (general anesthetic). ??? An incision will be made in the top of the fluid-filled sac. ??? Pus, blood, and mucus will be squeezed out, and a syringe or tube (drain) may be used to empty more fluid from the sac. ??? Your health care provider will do one of the following. He or she may: ??? Leave the drain in place for several weeks to drain more fluid. ??? Stitch open the edges of the incision to make a long-term opening for drainage (marsupialization). ??? The inside of the sac may be washed out (irrigated) with a sterile solution and packed with gauze before it is covered with a bandage (dressing). ??? Your health care provider do a culture test of the drainage fluid. The procedure may vary among health care providers and hospitals. What happens after the procedure? Your blood pressure, heart rate, breathing rate, and blood oxygen level will be monitored oftenuntil you leave the hospital or clinic. ??? Do not drive for 24 hours if you were given a sedative during your procedure. Summary ??? Incision and drainage is a surgical procedure to open and drain a fluid- filled sac. The sac maybe filled with pus, mucus, or blood. ??? Before the procedure, you may be given antibiotic medicine to treat or help prevent infection. ??? During the procedure, an incision will be made in the top of the fluid- filled sac. Pus, blood, and mucus is squeezed out, and a syringe or tube (drain) may be used to empty more fluid from the sac. ??? The inside of the sac may be washed out (irrigated) with a sterile solution and packed with gauze before it is covered with a bandage (dressing). This information is not intended to replace advice given to you by your health care provider. Make sure you discuss any questions you have with your health care provider. Document Revised: 10/09/2019 Document Reviewed: 10/09/2019 [employer] Patient Education ?? 2021 [employer]. 01/13/2023 02:18:25 Skin Abscess You were seen in thre ED for foot pain and diagnosed with an abscess. We performed an I&D and placed gauze packing. remove this packing in 3 days. After that, keep the wound edges open to promotefurther drainage. Perform soaks with warm soap and water at least 3 times daily for 20 minutes. Take the antibiotics as prescribed. As we discussed, at this point we feel that you can be treated safely with outpatient antibiotics but given that this is a recurrent infection, there is a risk that the infection will worsen or recur again and require additional treatment. Please follow up with your primary care at your home area and request a referral to podiatry for close follow up of the wound. Return to the ED if you develop quickly spreading redness, fevers, worsening swelling or redness despite the antibiotics, or for anything else that concerns you Skin Abscess A skin abscess is an infected area on or under your skin that contains a collection of pus and other material. An abscess may also be called a furuncle, carbuncle, or boil. An abscess can occur in oron almost any part of your body. Some abscesses break open (rupture) on their own. Most continue to get worse unless they are treated. The infection can spread deeper into the body and eventually into your blood, which can make you feel ill. Treatment usually involves draining the abscess. What are the causes? An abscess occurs when germs, like bacteria, pass through your skin and cause an infection. This may be caused by: ??? A scrape or cut on your skin. ??? A puncture wound through your skin, including a needle injection or insect bite. ??? Blocked oil or sweat glands. ??? Blocked and infected hair follicles. ??? A cyst that forms beneath your skin (sebaceous cyst) and becomes infected. What increases the risk? This condition is more likely to develop in people who: ??? Have a weak body defense system (immune system). ??? Have diabetes. ??? Have dry and irritated skin. ??? Get frequent injections or use illegal IV drugs. ??? Have a foreign body in a wound, such as a splinter. ??? Have problems with their lymph system or veins. What are the signs or symptoms? Symptoms of this condition include: ??? A painful, firm bump under the skin. ??? A bump with pus at the top. This may break through the skin and drain. Other symptoms include: ??? Redness surrounding the abscess site. ??? Warmth. ??? Swelling of the lymph nodes (glands) near the abscess. ??? Tenderness. ??? A sore on the skin. How is this diagnosed? This condition may be diagnosed based on: ??? A physical exam. ??? Your medical history. ??? A sample of pus. This may be used to find out what is causing the infection. ??? Blood tests. ??? Imaging tests, such as an ultrasound, CT scan, or MRI. How is this treated? A small abscess that drains on its own may not need treatment. Treatment for larger abscesses may include: ??? Moist heat or heat pack applied to the area several times a day. ??? A procedure to drain the abscess (incision and drainage). ??? Antibiotic medicines. For a severe abscess, you may first get antibiotics through an IV and then change to antibiotics by mouth. Follow these instructions at home: Medicines ??? Take kaie-scz-bxcqwac and prescription medicines only as told by your health care provider. ??? If you were prescribed an antibiotic medicine, take it as told by your health care provider. Donot stop taking the antibiotic even if you start to feel better. Abscess care ??? If you have an abscess that has not drained, apply heat to the affected area. Use the heat source that your health care provider recommends, such as a moist heat pack or a heating pad. ??? Place a towel between your skin and the heat source. ??? Leave the heat on for 20???30 minutes. ??? Remove the heat if your skin turns bright red. This is especially important if you are unable to feel pain, heat, or cold. You may have a greater risk of getting burned. ??? Follow instructions from your health care provider about how to take care of your abscess. Makesure you: ??? Cover the abscess with a bandage (dressing). ??? Change your dressing or gauze as told by your health care provider. ??? Wash your hands with soap and water before you change the dressing or gauze. If soap and water are not available, use hand electronic train control technician. ??? Check your abscess every day for signs of a worsening infection. Check for: ??? More redness, swelling, or pain. ??? More fluid or blood. ??? Warmth. ??? More pus or a bad smell. General instructions ??? To avoid spreading the infection: ??? Do not share personal care items, towels, or hot tubs with others. ??? Avoid making skin contact with other people. ??? Keep all follow-up visits as told by your health care provider. This is important. Contact a health care provider if you have: ??? More redness, swelling, or pain around your abscess. ??? More fluid or blood coming from your abscess. ??? Warm skin around your abscess. ??? More pus or a bad smell coming from your abscess. ??? A fever. ??? Muscle aches. ??? Chills or a general ill feeling. Get help right away if you: ??? Have severe pain. ??? See red streaks on your skin spreading away from the abscess. Summary ??? A skin abscess is an infected area on or under your skin that contains a collection of pus and other material. ??? A small abscess that drains on its own may not need treatment. ??? Treatment for larger abscesses may include having a procedure to drain the abscess and taking an antibiotic. This information is not intended to replace advice given to you by your health care provider. Make sure you discuss any questions you have with your health care provider. Document Revised: 02/29/2020 Document Reviewed: 12/22/2018 [employer] Patient Education ?? 2021 [employer]. Follow Up Care 01/13/2023 01:19:33 With:Return to Emergency Department Address:Unknown When:As needed With:Follow up with primary care provider Address:Unknown When:1 to 2 days Comments:Take Tylenol/Motrin for pain/feverReturn to ED if symptoms worsen Physician Emergency department Note * Shi Benitez MD: MODIFY, SIGN, VERIFY, PERFORM Event Display: ED Note - Physician Authored Date: Patient: JANNET POOLE Age: 37 years Sex: Male : 1985 Associated Diagnoses: Abscess of left foot Author: Shi Benitez MD Basic Information Additional information: Chief Complaint from Nursing Triage Note : Chief Complaint 01/13/2023 1:23 EST Chief Complaint Reports infection on top of left foot. Still seems to be leaking. Finished antibiotics a couple days ago. Also reports lower extremity medial lump for last 2 weeks. . History of Present Illness pt is a 37 yo male who presents to the ED with left foot pain and swelling. Pt was on a course of antibiotics for a left foot infection that finished a few days ago. he states overall his foot is much better than his initial infection however over the last day he noticed a small amount of purulent drainage from the wound and a little bit of swelling that had completely resolved on the abx. he denies fevers. he denies any spreading redness. he did notice a lump on the side of his knee that is nontender for 2 weeks. he is a former IV drug user but has not injected in several months and has not ever injected in the site of this infection Review of Systems Constitutional symptoms: No fever, Skin symptoms: Lesion, No rash, Respiratory symptoms: No shortness of breath, Cardiovascular symptoms: No chest pain, Gastrointestinal symptoms: No abdominal pain, Genitourinary symptoms Health Status Allergies: Allergic Reactions (All) No Known Allergies. Medications: (Selected) Inpatient Medications Ordered cephalexin: 500 mg = 1 cap(s), Oral, Once doxycycline: 100 mg = 1 cap(s), Oral, Once. Past Medical/ Family/ Social History Medical history: No active or resolved past medical history items have been selected or recorded.. Surgical history: No active procedure history items have been selected or recorded.. Family history: No family history items have been selected or recorded.. Social history: Social & Psychosocial History Social History Alcohol Past Substance Abuse Current, Marijuana, Daily Comment: IV drug use 1.5 months ago (01/13/2023 01:28 - Michelle Manzanares RN) Tobacco Current everyday tobacco user Tobacco Use:. 1 ppd per day. Electronic Cigarette/Vaping Electronic Cigarette Use: Never. Psychosocial History No active psychosocial history has been recorded . Problem list: No qualifying data available . Physical Examination Vital Signs Vital Signs 01/13/2023 1:23 EST Temperature Temporal Artery 36.3 DegC Peripheral Pulse Rate 56 bpm LOW Respiratory Rate 14 br/min Systolic Blood Pressure 141 mmHg HI Diastolic Blood Pressure 82 mmHg SpO2 100 % . Measurements 01/13/2023 1:32 EST Height/Length Dosing 182.880 cm Weight Dosing 92.990 kg 01/13/2023 1:23 EST Height/Length Estimated 182.880 cm Weight Estimated 92.990 kg . Basic Oxygen Information 01/13/2023 1:23 EST Oxygen Therapy Room air . General: Alert, no acute distress. Skin: Warm, dry, left foot with a 2x2cm dorsal midfoot fluctuant mass. scab over the top. mildly ttp. mildly erythematous but not warm. pulses intact. rom strength and sensation intact medial right calf with palpable lipoma. no skin changes, nontender, easily mobile.. Head: Atraumatic. Neck: Supple. Respiratory: Respirations are non-labored. Neurological: Alert and oriented to person, place, time, and situation. Psychiatric: Cooperative. Medical Decision Making Patient is a 37-year-old male who presents emergency department with left foot pain and swelling. Patient is overall well-appearing in no acute distress. Vital signs unremarkable. Patient appears to have a small recurrent abscess in the site of his prior infection. There is no clear overlying cellulitis - area of midly erythematous but not warm or indurated. There is no evidence of systemic illness such as sepsis. Suspect patient simply requires a longer course of antibiotics as well as an I&D. Not feel patient requires lab work at this point. See I&D procedure note below. We will place him on a course of antibiotics. I did discuss with him that he should have follow-up given that his symptoms recurred after a course of antibiotics. However I do not feel like patient requires inpatient management or IV antibiotics or any surgical intervention at this time. I did discuss with patient that it is possible that this could be needed in the future if his second course of antibioticsfails. The lump on his leg appears to be a lipoma. No evidence of lymphangitis or other infectious etiology. Reexamination/ Reevaluation Vital signs Basic Oxygen Information 01/13/2023 1:23 EST Oxygen Therapy Room air Procedure Incision and drainage Time: 01/13/2023 02:08:00 . Confirmed: Patient, procedure, side, and site correct, Time-out taken prior to procedure. Consent: Patient, Has given verbal consent. Indication: Abscess. Pre procedure exam: Circulation, motor, and sensory intact. Procedural sedation: None. Description Foot: left, dorsal, midline. Anesthesia: 3 ml, 1% lidocaine. Preparation: sterile field established. Incision: 1.5 cm incision was made, using a # 11 blade scalpel. Technique: fluid collection was manually decompressed, wound probed, loculations decompressed. Drainage: small amount, bloody. Irrigation: moderate, with saline. Wound: packing placed in wound cavity, drain placed: 1/4in iodoform gauze. Post procedure exam: Circulation, motor, sensory examination intact. Patient tolerated: Well. Complications: None. Follow-up: Primary care physician, Antibiotic: as below, Home care instructions given. Performed by: Self. Impression and Plan Diagnosis Abscess of left foot ([id number] L02.612, Discharge, Medical) Plan Condition: Improved. Disposition: Discharged: Time 01/13/2023 02:09:00, to home. Prescriptions: Launch prescriptions Pharmacy: cephalexin 500 mg oral capsule (Prescribe): 500 mg = 1 cap(s), Oral, QID, for 14 day(s), 56 cap(s),0 Refill(s) doxycycline hyclate 100 mg oral capsule (Prescribe): 100 mg = 1 cap(s), Oral, Daily, for 14 day(s),14 cap(s), 0 Refill(s). Patient was given the following educational materials: Skin Abscess, Incision and Drainage, Incision and Drainage, Skin Abscess. Follow up with: Follow up with primary care provider Within 1 to 2 days Take Tylenol/Motrin for pain/fever Return to ED if symptoms worsen; ; Return to Emergency Department Within As needed. Counseled: Patient, Regarding diagnosis, Regarding treatment plan, Regarding prescription, Patient indicated understanding of instructions. [Electronically Signed on: 01/13/2023 02:16 EST] Shi Benitez MD, MD [Verified on: 01/13/2023 02:16 EST] Shi Benitez MD, MD Patient Care team information Care Team Personnel Name: Neha Kat Position: [facility] No Access Member Role: Primary Care Physician Name: Michelle Manzanares RN Position: [facility] Member Role: ED Nurse Name: Shi Benitez MD Position: [facility] ED Physician LP Member Role: Attending Physician Address: Address: [address] [place] [address]
--- NOTE | 2023-12-17 17:14 | ED.GENADUL_ITS ---
HPI General Date/Time Provider Initiated Documentation: 12/17/23 17:00 . HPI Narrative: 38 year-old male presents to ED today by POV/ambulating with a chief complaint of L leg swelling and redness, seen by PCP and started on PO antibiotics which he has not picked up yet- sent to ED for bloodwork and possible U/S with onset noted about a week and a half ago. Quality described as not painful, no radiation to recent lesions, significant unilateral swelling, endorses mild erythema but no focal nodular swellings, varicosities. Patient endorses past IVDU but clean for over one year, had prior cellulitis with similar presentation. Severity is described as mild. Palliating factors include nothing specific attempted yet. Provoking factors include nothing specific. Patient not anticoagulated. Related Data Allergies Allergy/AdvReac Type Severity Reaction Status Date / Time acetaminophen [From Tylenol] AdvReac Mild Nausea Unverified 12/17/23 17:11 General Stated Complaint: Cellulitis SHOBHA: 3 Review of Systems All systems reviewed & are unremarkable except as noted in HPI and below Exam Narrative Exam Narrative: GENERAL APPEARANCE: Well-nourished, non-toxic, awake and alert, atraumatic, no acute distress. SKIN: Warm, pink, dry, intact, without rashes/lesions/ulcerations. HEAD: Normocephalic, atraumatic, normal hair distribution for gender/age. EYES: Pupils PERRLA, EOMs intact without nystagmus, normal conjunctiva, no exudates on lids/lashes. ENT: Nares patent, no circumoral cyanosis, no facial swelling NECK: Supple, trachea midline, painless cervical ROM. LUNGS/CHEST: Non-labored respirations, normal A/P diameter, symmetrical expansion, no chest wall deformity HEART (CV/PV): Regular rate, L doraslis pedis pulse 2+, no peripheral edema, no JVD. ABDOMEN: Soft, non-distended, no guarding. MSK: Normal ROM, no swelling/deformity to bilateral UEs or LEs, moving all extremities without weakness, no cyanosis, spine midline without tenderness, normal curvature. L LE: Mild erythema diffusely to the left lower extremity without any skin lesions, no varicosities, no unilateral swelling greater than 3 cm at the tibial tuberosity, no joint line tenderness, no pain with passive range of motion, distal foot has great capillary refill, sensation intact, plantar dorsiflexion 5/5, consistent with mild cellulitis, Oscar's negative NEURO: Mental Status AAOx4 - alert to person, place, time, events No facial droop, no forehead involvement. Motor: No focal weakness - strength 5/5 in bilateral UEs and LEs, proximal and distal, symmetric. Sensory: sensation intact to light touch globally. Gait normal: patient ambulated without ataxia into ED room. PSYCH: euthymic, cooperative, pleasant, appropriate speech Course Vital Signs Vital signs: Vital Signs Temperature 36.6 C 12/17/23 17:05 Pulse 80 12/17/23 17:05 Respiratory Rate 17 12/17/23 17:05 Blood Pressure 160/88 H 12/17/23 17:05 Pulse Oximetry 97 12/17/23 17:05 Temperature 36.6 C 12/17/23 17:05 Temperature Source Oral 12/17/23 17:05 Pulse 80 12/17/23 17:05 Respiratory Rate 17 12/17/23 17:05 Blood Pressure 160/88 H 12/17/23 17:05 Blood Pressure Position Sitting 12/17/23 17:05 Pulse Oximetry 97 12/17/23 17:05 Oxygen Delivery Method Room Air 12/17/23 17:05 Oxygen Flow Rate 0 12/17/23 17:05 Pain Level 0 12/17/23 17:05 Medical Decision Making This dictation utilizes [id number] dictation software and may contain unedited grammatical errors. 38 y/o M presents to ED today with a chief complaint of possible cellulitis vs DVT- sent for bloodwork, possible U/S, former IVDU use, denies fevers, denies skin lesions, endorses mild swelling, not painful. Patients' medical history: IVDU, cellulitis. Family and social history: clean for over one year currently. Pertinent exam findings / vital signs include L LE: Mild erythema diffusely to the left lower extremity without any skin lesions, no varicosities, no unilateral swelling greater than 3 cm at the tibial tuberosity, no joint line tenderness, no pain with passive range of motion, distal foot has great capillary refill, sensation intact, plantar dorsiflexion 5/5, consistent with mild cellulitis, Osacr's negative. Differential / pathologies of concern include DVT, cellulitis, sepsis, bacteremia. Diagnostic studies of: -CBC, CMP, Lactate, CRP, D-dimer, Blood Cx's. -CBC completely benign, no leukocytosis -CMP benign -lactate neg -D-dimer negative -CRP mild elev Interventions of: -recommend he continue outpatient PO ABX. ED Course/Assessment/Plan: 38-year-old well-appearing male presents for workup for possible cellulitis versus more insidious pathology, D-dimer is negative not indicative of DVT, lactate is negative do not suspect sepsis, CRP is only mildly elevated and there is no leukocytosis on his CBC. Counseled the patient on continuing his p.o. antibiotics and strict return criteria for any worsening despite treatment, counseled that he does not have it DVT and that his blood cultures are pending and he will be called if there is any findings. Findings not consistent with sepsis, DVT, abscess, severe cellulitis, NV compromise. Disposition of Cellulitis of Left Lower Leg. Patient verbalized understanding of the plan and return to ED criteria and engaged in shared decision making. Medical Records Medical records reviewed: Yes I reviewed the patient's medical records. Lab Data Lab results reviewed: Yes I reviewed the patient's lab results. Labs: 12/17/23 17:47 Blood Blood Culture - Pending 12/17/23 17:35 Blood Blood Culture - Pending Laboratory Tests Range/Units 12/17/23 17:33 WBC (4.4-10.8) 10^3/uL 6.78 RBC (4.36-5.78) 10^6/uL 4.68 Hgb (13.5-17.5) g/dL 13.6 Hct (40.0-50.0) % 40.1 MCV (80-95) fL 86 MCH (27.0-33.0) pg 29.1 MCHC (32.0-36.0) % 33.9 RDW (11.8-14.1) % 12.7 Plt Count (130-400) 10^3/uL 183 MPV (8.0-11.0) fL 8.9 Immature Gran % 0.1 Neutrophils % 63.6 Lymphocytes % 24.9 Monocytes % 8.8 Eosinophils % 2.2 Basophils % 0.4 Nucleated RBC % (0.0-0.3) % 0.0 Absolute Neutrophils (1.2-6.7) 10^3/uL 4.30 Absolute Lymphocytes (1.2-3.4) 10^3/uL 1.69 Absolute Monocytes (0.1-0.8) 10^3/uL 0.60 Absolute Eosinophils (0.0-0.7) 10^3/uL 0.15 Absolute Basophils (0.0-0.2) 10^3/uL 0.03 D-Dimer (<500) ng/mlFEU 285 VBG Lactate (0.6-1.4) mmol/L 0.8 Sodium (136-145) mmol/L 139 Potassium (3.5-5.1) mmol/L 4.0 Chloride (98-107) mmol/L 103 Carbon Dioxide (21.0-32.0) mmol/L 29.9 Anion Gap (3-11) mmol/L 6.1 BUN (7-18) mg/dL 21 H Creatinine (0.70-1.30) mg/dL 1.1 Est GFR (CKD-EPI 2020) (mL/min/1.73m2) 89.22 Glucose (74-106) mg/dL 130 H Calcium (8.5-10.1) mg/dL 9.0 Total Bilirubin (0.2-1.0) mg/dL 0.2 AST (15-37) U/L 18 ALT (16-63) U/L 25 Alkaline Phosphatase (46-116) U/L 79 C-Reactive Protein (0.0-0.3) mg/dL 0.60 H Total Protein (6.4-8.2) g/dL 6.8 Albumin (3.4-5.0) g/dL 3.4 Quality:SDOH Health Related Social Needs: 2 No Data to Display PFSH All Active Problems Cellulitis of left lower leg (Acute) History of marijuana use (Acute) Smoker unmotivated to quit (Acute) IV drug abuse (Acute) Medical History Alcohol abuse, in remission Kidney malignancy Kidney stones S/p nephrectomy Social History Smoking/Tobacco Use Status: Current every day Tobacco Type: cigarettes Smoking risk assessment performed?: Yes Alcohol Intake: former Drug use: Daily Substance use type: marijuana, heroin, opiates and IV drugs Details: former alcohol use disorder. stop drinking alcohol for a year per pt Current gender identity: male Do you feel safe at home: Yes Do you feel safe in your relationship?: Yes Discharge Plan Disposition Patient Disposition: Home Discharge Details Clinical Impression: Cellulitis of left lower leg Primary Care Provider: Yury Allen ED Provider: Donnie Faye Discharge Instructions Instructions: Cellulitis (ED) Additional Instructions: You were seen in the emergency department for the likely superficial cellulitis of your left lower leg, your D-dimer test is negative indicating this is not a blood clot. Your physical exam is not consistent with clot pathology either. Your blood work is quite benign, your lactate is normal indicating this is not sepsis, you have no elevation of white blood cells at this time and your CRP which is an inflammatory marker is only mildly elevated. I think it is reasonable and prudent to follow-up with your prescribed antibiotic tablets and continue with primary care follow-up. We did take blood cultures in case you do have any bacteria in your bloodstream which should result in the next 1 to 2 days. Please return for any increasing redness and especially with systemic symptoms like nausea fever or weakness for further workup. Discharge Data Discharge Date/Time-TO BE ENTERED AT DEPARTURE: 12/17/23 18:28
[2023-12-17 17:41] LABS: Lactate 0.8 mmol/L (0.6-1.4)
[2023-12-17 17:43] LABS: Abs Immature Grans 0.01 10^3/uL (0.0-0.06); Absolute Basophil Count 0.03 10^3/uL (0.0-0.2); Absolute Eosinophil Count 0.15 10^3/uL (0.0-0.7); Absolute Lymphocyte Count 1.69 10^3/uL (1.2-3.4); Basophils % 0.4; Eosinophils % 2.2; HCT 40.1 % (40.0-50.0); HGB 13.6 g/dL (13.5-17.5); Immature Grans % 0.1; Lymphocytes % 24.9; MCH 29.1 pg (27.0-33.0); MCHC 33.9 % (32.0-36.0); MCV 86 fL (80-95); MPV 8.9 fL (8.0-11.0); Monocytes % 8.8; Neutrophils % 63.6; Platelet Count 183 10^3/uL (130-400); RBC 4.68 10^6/uL (4.36-5.78); RDW 12.7 % (11.8-14.1); RDW-SD 39.2 fL; WBC 6.78 10^3/uL (4.4-10.8)
[2023-12-17 17:59] LABS: ALT 25 U/L (16-63); AST 18 U/L (15-37); Albumin 3.4 g/dL (3.4-5.0); Alkaline Phosphatase 79 U/L (46-116); Anion Gap 6.1 mmol/L (3-11); BUN 21 mg/dL (7-18); Bilirubin, Total 0.2 mg/dL (0.2-1.0); CO2 29.9 mmol/L (21.0-32.0); CREATININE 1.1 mg/dL (0.70-1.30); Chloride 103 mmol/L (98-107); Estimated GFR 89.22 (mL/min/1.73m2); Glucose 130 mg/dL (74-106); Sodium 139 mmol/L (136-145); Total Protein 6.8 g/dL (6.4-8.2)
[2023-12-17 18:15] LABS: D-Dimer 285 ng/mlFEU (<500)
[2023-12-17 18:24] VITALS: BP 160/88; PULSE 80; RESP 17; TEMP 36.6; O2SAT 97
== END 2023-12-17 18:28 | disposition home or self-care (01) ==
PROVIDERS: Emergency Provider Physician Assistant; PCP Physician Assistant Medical
DX: L03.116 Cellulitis of left lower limb (principal); F17.210 Nicotine dependence, cigarettes, uncomplicated; Z90.5 Acquired absence of kidney; Z85.528 Personal history of other malignant neoplasm of kidney
CPT/HCPCS: 36415; 80053; 87040; 99283; 83605; 85025; 85379; 86140